=== PATIENT | male | born 1950 | race Caucasian/White ===

== ENCOUNTER → 2018-11-21 09:19 | Outpatient (CLI) | payer MEDICARE, SELFPAY ==
[2018-11-21 10:05] LABS: Add Manual Diff / Slide Review NO; Basophils Absolute Auto 100 /uL (0-100); Basophils Percent Auto 1.1 % (0-2); Eosinophils Absolute Auto 200 /uL (0-450); Eosinophils Percent Auto 3.4 % (2-4); Hematocrit 42.9 % (41-53); Hemoglobin 14.6 g/dL (13.5-17.5); Lymphocytes Absolute Auto 1500 /uL (1100-4500); Lymphocytes Percent Auto 30.5 % (25-40); Mean Corpuscular HGB Conc 34.2 % (30-36); Mean Corpuscular Hemoglobin 31.2 PG (26-34); Mean Corpuscular Volume 91.4 fL (80-100); Monocytes Absolute Auto 600 /uL (0-900); Monocytes Percent Auto 12.2 % (3-14); Neutrophils Absolute Auto 2600 /uL (1500-7000); Neutrophils Percent Auto 52.8 % (50-75); Platelet Count 280 X10^3/uL (150-400); Red Blood Cell Count 4.69 X10^6/uL (4.5-5.9); Red Cell Distribution Width 13.4 % (11.6-14.8); White Blood Cell Count 4.9 X10^3/uL (4.5-11.0)
[2018-11-21 10:20] LABS: Alanine Aminotransferase 19 IU/L (21-72); Albumin 4.2 g/dL (3.5-5.0); Albumin Globulin Ratio 1.6 (1.0-2.8); Alkaline Phosphatase 64 U/L (38-126); Aspartate Aminotransferase 22 IU/L (17-59); BUN Creatinine Ratio 23.8 (6-22); Bilirubin Total 0.8 mg/dL (0.2-1.3); Blood Urea Nitrogen 19 mg/dL (9-20); Calcium 9.3 mg/dL (8.4-10.2); Carbon Dioxide 25 mmol/L (22-32); Chloride 106 mmol/L (98-107); Cholesterol 200 mg/dL (140-199); Estimated Glomerular Filt Rate > 60.0 mL/min (>60); Globulin 2.7 g/dL (1.7-4.1); Glucose 92 mg/dL (80-110); HDL Cholesterol 55 mg/dL (40-60); HEMOLYSIS < 15 (0-50); LDL Cholesterol Calculated 128 mg/dL (<100); Potassium 4.2 mmol/L (3.4-5.1); Sodium 141 mmol/L (137-145); Total Protein 6.9 g/dL (6.3-8.2); Triglycerides 83 mg/dL (35-150)
[2018-11-21 10:51] LABS: Prostate Specific Antigen Scrn 0.855 ng/mL (0.1-4.0); TSH w/ Reflex to FT4 1.69 uIU/mL (0.47-4.68)
== END ==
PROVIDERS: Visit Provider Internal Medicine
DX: Z12.5 Encounter for screening for malignant neoplasm of prostate (principal); Z85.820 Personal history of malignant melanoma of skin; E78.00 Pure hypercholesterolemia, unspecified; G25.2 Other specified forms of tremor; Z12.11 Encounter for screening for malignant neoplasm of colon
CPT/HCPCS: 36415; 80053; 80061; 84443; 85025; G0103

== ENCOUNTER → 2020-03-25 11:00 | Outpatient (CLI) | payer MEDICARE, SELFPAY ==
[2020-03-25 13:23] LABS: Add Manual Diff / Slide Review NO; Basophils Absolute Auto 0 /uL (0-100); Eosinophils Absolute Auto 200 /uL (0-450); Eosinophils Percent Auto 4.1 % (2-4); Hematocrit 43.6 % (41-53); Lymphocytes Absolute Auto 1500 /uL (1100-4500); Lymphocytes Percent Auto 32.2 % (25-40); Mean Corpuscular HGB Conc 34.3 % (30-36); Mean Corpuscular Hemoglobin 31.9 PG (26-34); Mean Corpuscular Volume 92.9 fL (80-100); Monocytes Absolute Auto 500 /uL (0-900); Monocytes Percent Auto 11.2 % (3-14); Neutrophils Absolute Auto 2400 /uL (1500-7000); Neutrophils Percent Auto 51.5 % (50-75); Platelet Count 278 X10^3/uL (150-400); Red Blood Cell Count 4.69 X10^6/uL (4.5-5.9); Red Cell Distribution Width 13.5 % (11.6-14.8); White Blood Cell Count 4.7 X10^3/uL (4.5-11.0)
[2020-03-25 13:44] LABS: Hemoglobin A1C% w Est Avg Glu 5.5 % (4.0-6.0)
[2020-03-25 13:53] LABS: Blood Urea Nitrogen 17 mg/dL (9-20); Calcium 9.1 mg/dL (8.4-10.2); Carbon Dioxide 26 mmol/L (22-32); Chloride 105 mmol/L (98-107); Estimated Glomerular Filt Rate > 60.0 mL/min (>60); Glucose 108 mg/dL (80-110); HEMOLYSIS < 15 (0-50); Potassium 4.3 mmol/L (3.4-5.1); Sodium 138 mmol/L (137-145)
== END ==
PROVIDERS: PCP Internal Medicine; Referring Provider Internal Medicine; Visit Provider Orthopaedic Surgery Adult Reconstructive Orthopaedic Surgery
DX: Z01.818 Encounter for other preprocedural examination (principal); Z01.812 Encounter for preprocedural laboratory examination; R73.9 Hyperglycemia, unspecified
CPT/HCPCS: 36415; 80048; 83036; 85025; 93005; 93010

== ENCOUNTER → 2020-04-25 09:59 | Outpatient (CLI) | payer MEDICARE, SELFPAY ==
[2020-04-26 23:22] LABS: COVID19 Sendout Not Detected (Not Detect)
== END ==
PROVIDERS: PCP Internal Medicine; Visit Provider Physician Assistant
DX: Z01.812 Encounter for preprocedural laboratory examination (principal)
CPT/HCPCS: 87635

== ENCOUNTER 2020-04-29 15:43 | Observation (INO) | payer MEDICARE, SELFPAY ==
[2020-04-21 09:59] VITALS: BMI 26.9
[2020-04-28] VITALS (12 sets, daily range): BP systolic 99–149; BP diastolic 51–79; PULSE 54–71; RESP 11–19; TEMP 36.4–37.4; O2SAT 94–100; BMI 27.4
--- NOTE | 2020-04-28 | DI.RAD.S_ITS ---
PROCEDURE: XR PELVIS 1-2V INDICATIONS: RIGHT TOTAL HIP TECHNIQUE: 1 view of the lower pelvis acquired. COMPARISON: None. FINDINGS: Bones: Patient is status post right hip arthroplasty, with hardware components in expected positions. The hip joint appears congruent. The visualized bony structures appear intact. Soft tissues: Overlying postoperative changes are noted. No suspicious soft tissue densities. IMPRESSION: Normal postoperative alignment after right total hip arthroplasty. Dictated by: Martínez Presley M.D. on 04/28/2020 at 10:40 Approved by: Martínez Presley M.D. on 04/28/2020 at 10:41
--- NOTE | 2020-04-28 | DI.RAD.S_ITS ---
PROCEDURE: XR HIP RT 1V INDICATIONS: RIGHT TOTAL HIP TECHNIQUE: 2 view(s) of the hip acquired. COMPARISON: None. FINDINGS: Bones: Patient is status post right hip arthroplasty, with hardware components in expected positions. The hip joint appears congruent. The visualized bony structures appear intact. Soft tissues: Overlying postoperative changes are noted. No suspicious soft tissue densities. IMPRESSION: Right total hip arthroplasty, normal alignment on post-arthroplasty frontal view. Dictated by: Martínez Presley M.D. on 04/28/2020 at 10:37 Approved by: Martínez Presley M.D. on 04/28/2020 at 10:39
[2020-04-28] MEDS: LACTATED RINGERS 1,000 ML 42 ML IV ×2 (07:05→09:03)
[2020-04-28] MEDS: ACETAMINOPHEN 325 MG TABLET 975 MG PO (07:22)
[2020-04-28] MEDS: CELECOXIB 200 MG CAPSULE 400 MG PO (07:22)
--- NOTE | 2020-04-28 07:41 | PM.PREOP ---
Pre-operative Note COVID-19 COVID-19 status: Negative Result date/Date tested (Pos, Neg/Pending): 04/25/20 Interval Note History & Physical reviewed/Exam performed by Physician: Yes Changes to H&P: No H&P completed within 30 days and has changed as indicated here:: Plan for right anterior DUNIA.
[2020-04-28] MEDS: CLINDAMYCIN 600 MG/50 ML PIGGYBACK 50 MG IV (07:42)
--- NOTE | 2020-04-28 08:22 | SUR.OPER ---
Supine on padded [place] table with bilateral legs secured in padded positioning boots and suspended in positioning spars, operative leg in traction per surgeon. Head on one pillow. Arm on non-operative side secured on padded armboard <90 degrees abduction. Arm on operative side padded and resting across chest then secured with tape over sheet. Padded perineal post in place per surgeon.
[2020-04-28] MEDS: TRANEXAMIC ACID 1,000 MG VIAL 1000 MG IV ×2 (08:28→09:27)
[2020-04-28] MEDS: ROPIVACAINE 0.5% PF 20ML 60 ML, MORPHINE 4 MG, KETOROLAC 30 MG INJ (08:33)
--- NOTE | 2020-04-28 09:46 | P.OP_ITS ---
Operative Date/Time/Diagnoses Date of procedure: 04/28/20 Time of procedure: 09:46 Pre-op diagnosis: right hip OA Post-op diagnosis: same Procedure & Clinicians Procedure: right anterior total hip arthroplasty Same procedure as scheduled: Yes Indications: right hip OA resistant to further conservative management Surgeon: Yao Ricks Steel Welder: Leeann Paredes Anesthesia Type: Spinal and Sedation Operative Notes Findings: Right hip osteoarthritis with multiple intra-articular loose bodies. Closure Type: primary Specimen(s): none sent Prosthetic devices, grafts, tissues, transplants, or devices: Agu[employer] Nephew R3 cup 56 mm 2x 25mm screwsa 56 x 36 mm neutral liner Anthology size 8 stem (std) Biolox 36 + 0 head Estimated Blood Loss (mL): 200 Procedure in detail: Patient was met in the preoperative holding area where the site and side of surgery were marked by . All last minute questions were answered. Informed consent had been reviewed in clinic was reviewed again in the preoperative holding area. Patient was then brought back in the operating room where he received a spinal anesthetic. He was then transferred onto the [place] table. Bilateral feet were well padded in placed in [place] table traction boots. The right hip was then prepped and draped in normal sterile fashion. A surgical time-out was performed verifying the site and side of surgery as well as the name of the patient. A 5 cm long incision starting approximately 2 cm distal and 1 cm lateral to the ASIS was made in the skin using #10 Blade. This incision was aimed towards the fibular head. Electrocautery was used to dissect down to the level of the tensor fascia. A new #10 blade was then used to incise the tensor fascia. A Allis clamp was placed on the medial leaflet and the tensor muscle itself was reflected laterally. A Meyerding was then placed over the lateral edge of the rectus femoris and retracted medially this gave us good exposure to the ascending branches of the circumflex femoral vessels which were then coagulated for hemostasis. A Cobra retractor was then placed over the superior aspect of the femoral neck pericapsular fat was then removed and a 2nd cobra was then placed under the inferior portion of the femoral neck. An inverted T-shaped capsulotomy was then made using electrocautery and the superior and inferior leaflets were then tagged with a FiberWire suture. The Cobra was then placed intracapsularly. Based off for preop template a femoral neck cut was then made using reciprocating saw. The femur was then externally rotated 45? and a corkscrew was then placed into the femoral head and the head was removed. At this point and elects the soft tissue protector were sleeve was then placed into the wound. A pair a bent Hohmann was then placed over the anterior wall of the acetabulum and a 2nd was placed over the posterior wall acetabulum gluteus good acetabular exposure. Remnant of the labrum was then removed as well as the pulvinar. Began reaming with a 46 mm Reamer upsizing by 2s until we got to 50 mm Reamer. This point x-ray was brought in and matched our preoperative templated standing film. The last several reamers were reamed under fluoroscopic guidance. The 54 mm Reamer started to have good resistance with reaming. We then selected a 55 mm Reamer which had good resistance as well and a 56 mm 3 hole R3 cup was then selected. This was malleted into place under fluoroscopic guidance and 2 screws were then placed through the cup. A 56 mm x 36 mm neutral liner was then selected and placed. Ensuring that all tabs were flush with the acetabular rim. We then turned our attention to the femoral side the femoral elevator hook was placed under the posterior aspect of femur and a 45 degree Hohmann retractors placed over the superior aspect of the superior leaflet of the capsulotomy and the capsular leaflet was released from the inside shoulder of the greater trochanter giving us exposure to the short external rotators. A small release of the short external rotators was performed over the lateral border this allowed them to partially peel but remain attached. A single large prong retractor was then placed over the greater trochanter and a 2 prong Bernstein retractors placed over the medial calcar giving us good femoral exposure. A canal finer was used followed by a chili pepper broach followed by size 1 broach up to a size 8. We then calcar planed off the size 8 broach. A standard trial neck was selected with 36+ 0 head this was then reduced and brought through range of motion including maximal external rotation and found to be stable. It was then brought to 90? of external rotation extended to the floor and back up without any dislocations. Fluoroscopy was brought in for leg length verification as well as for stem placement. On fluoroscopic view appears we are a couple mm long on the operative side in addition there is a slight amount of varus in the stem. The hip was then dislocated the trial components were removed I down sized to size 6 broach making sure to lateralize taken out of varus. I then did the same with a size 7 broach and finally a size 8 which was several mm countersunk to her previous calcar cut. I then calcar reamed again down to the new level. The trial components were removed and a size 8 standard anthology stem was selected impacted into place. A 36+ 0 delta by locks head was then impacted onto the trunnion and hip was reduced a final time. Fluoroscopy was brought in for final films. The local injection was infiltrated into superior and inferior leaflets of the capsule as well as the tensor muscle. The wound was then irrigated with dilute Betadine solution was allowed to sit for several minutes prior to being washed away with copious normal saline. The capsule was then repaired with a running Ethibond suture and the FiberWire tag sutures were removed. The tensor fascia layer was then closed with a 1. Vicryl in a running locking fashion. Two Vicryl was then used in subcutaneous layer fo llowed by a running strata fix and Dermabond skin glue. An Aquacel dressing was then placed. Complications: none Post-operative Condition: stable Disposition: PACU Plan for aftercare: 24 hours of postop antibiotics, weight-bearing as tolerated right lower extremity, aspirin 81 mg b.i.d. for 6 weeks for DVT prophylaxis.
--- NOTE | 2020-04-28 10:13 | SUR.PHASEI ---
Report called to Joselo RN up on floor, will transfer soon, Dr Ricks here talking with pt now and hip x-ray done in pacu minutes ago
[2020-04-28] MEDS: diphenhydrAMINE 50 MG/ML VIAL 25 MG IV (10:22)
--- NOTE | 2020-04-28 10:34 | PC.NURSE ---
Day shift: Pt on unit from PACU at approx 1030. Rt hip dressing Aquacel is CDI. Pt A&Ox3. VS WNL. RA 97%. CMS ok. PPP. Report pain rt hip 07/20. Agrees to not get OOB w/o help from staff. Oriented to room and call light. Tolerating calf SCD's. Call light in reach.
[2020-04-28] MEDS: LACTATED RINGERS 1,000 ML 125 ML IV ×2 (11:04→20:21)
[2020-04-28] MEDS: CEFAZOLIN 2 GM/100 ML FROZ.PIGGY IV ×2 (11:43→18:43)
[2020-04-28] MEDS: diphenhydrAMINE 25 MG TABLET PO ×2 (11:56→17:45)
[2020-04-28] MEDS: ACETAMINOPHEN 325 MG TABLET 650 MG PO ×2 (13:57→20:16)
--- NOTE | 2020-04-28 14:00 | PT.IIE ---
Current Diagnoses Unilateral primary osteoarthritis, right hip (04/28/20) Surgery Performed Operation Date: 04/28/20 07:45 Actual Procedures p Total Hip Arthroplasty/Anterior Approach(Right) - Yao Ricks MD Surgical History (Last Updated 04/21/20 @ 10:12 by Indiana Smith RN) History of arthroplasty of right shoulder (Acute 2018) History of arthroscopy of right shoulder (Acute 1999) History of mandibular surgery (Acute 1989) History of vasectomy (Acute 1972) Hx of appendectomy (Acute 1970) Medical History (Last Updated 04/21/20 @ 10:12 by Indiana Smith RN) Melanoma (Acute) Osteoarthritis (Acute) Physical Therapy Inpatient Evaluation/Re-Eval M1 PT/OT-IP Prior Functional Status Start: 04/28/20 14:52 Freq: NEEDED Status: Active Protocol: Document 04/28/20 14:00 AB (Rec: 04/28/20 15:01 AB [id number]) Medical Review Prior Functional Status Medical History Reviewed Yes Communication able to make needs known Mobility and Gait pt stated that he is independent with all mobilities and ambulation without AD Social History Household Members spouse Living Arrangements House Number of Floors (Floors) One Floor Number of Stairs To Enter/Railing? no steps to enter Home Environment High Toilet,Walk in Shower, Built-In Shower Seat Home Equipment Front Wheel Walker Additional Social History Comment has hiking poles M2 PT-IP Current Condition Start: 04/28/20 14:52 Freq: NEEDED Status: Active Protocol: Document 04/28/20 14:00 AB (Rec: 04/28/20 15:01 AB [id number]) Physical Therapy Current Condition Current Condition Evaluation Date 04/28/20 Treatment Diagnosis s/p R DUNIA anterior approach; difficulty in walking Onset Date 04/28/20 Precautions Anterior Hip Precautions No Hip Extension,No Hip External Rotation Weight Bearing Status Weight Bearing Status Weight Bear as Tolerated Allowed Weight Bearing Amount (enter % RLE WBAT or #) (%) M3 PT-IP Subjective Start: 04/28/20 14:52 Freq: NEEDED Status: Active Protocol: Document 04/28/20 14:00 AB (Rec: 04/28/20 15:01 AB [id number]) Subjective Physical Therapy Visit Type Type Initial Evaluation Visit Start Time 14:00 Visit Stop Time 14:39 Total Visit Minutes 39 Number of JTAC Visits 0 Physical Therapy Visit Comments Patient Comments pt is agreeable to do PT Therapy Pain Assessment Pain Present Pain Present Denied Pain M4 PT-IP Mobility and Gait Start: 04/28/20 14:52 Freq: NEEDED Status: Active Protocol: Document 04/28/20 14:00 AB (Rec: 04/28/20 15:01 AB [id number]) PT-Bed Mobility Assessment Supine to Sit Supine to Sit Standby Assistance PT-Transfer Assessment Sit to and From Stand Sit to and from Stand Contact Guard Assistance,1 Person Assistance,Use of Upper Extremities Equipment Transfer Assistive Device Gait Belt,Front Wheeled Walker Orthotic/Prosthetic Devices or Brace: No Transfers Transfer Destination Toilet Transfer Technique ambulated using FWW Transfer Ability Level of Assist Contact Guard Assistance,1 Person Assistance,Use of Upper Extremities Comments Mobility Comments educated on anterior hip precautions and pt able to recall afterwards. BP supine: 119/72. completed supine to sit SBA. pt no complaints of dizziness/lightheadedness. completed sit to stand CGA and ambulated in room ~ 30 ft. requested to use the toilet and ambulated towards the toilet using FWW CGA. pt was able to maintain standing using FWW SBA while using the toilet. ambulated out of the toilet using FWW CGA. Agreed to sit up on chair. positioned on chair. ice pack provided. call light and table placed within reach. Gait Assessment Gait Gait Assistance Required: Contact Guard Assist Distance (Feet) 30 Able to Maintain Weight Bearing Status Yes During Gait Assistive Devices Assistive Device Gait Belt,Front Wheeled Walker Orthotic/Prosthetic Devices or Brace: No Gait Deviations General Gait Pattern Antalgic Factors Limiting Gait Function Factors Limiting Gait Function Decreased Activity Tolerance, Decreased Strength,Poor Balance PT-Balance Assessment Sitting Balance and Reactions Static Sitting Balance Ability Good Dynamic Sitting Balance Ability Good Standing Balance and Reactions Static Standing Balance Ability Fair Dynamic Standing Balance Ability Fair Device Used FWW M5 PT-IP Objective Assessments Start: 04/28/20 14:52 Freq: NEEDED Status: Active Protocol: Document 04/28/20 14:00 AB (Rec: 04/28/20 15:01 AB [id number]) Orientation Orientation/Cognition Level of Alertness Alert Orientation Name,Age,Birthday,Month,Date, Year,Day of Week,Place, Situation Language Function Ability No Deficits Noted Safety Awareness Understands Safety Issues Memory Description No Deficits Noted Gross Range of Motion Lower Extremity ROM Assessment Within Functional Limits Strength Lower Extremity Strength Assessment Right Impaired Hip 3+/5 Knee 4-/5 Coordination Assessment Gross Coordination Gross Coordination WNL Sensation Assessment Sensation Gross Sensation WNL Muscle Tone Muscle Tone WNL Yes M6 PT-IP Treatment Start: 04/28/20 14:52 Freq: NEEDED Status: Active Protocol: Document 04/28/20 14:00 AB (Rec: 04/28/20 15:01 [id number]) Physical Therapy Treatment Education Education Provided Precautions,Weight Bearing Status,Post-Op Packet,Safety M7 PT-IP Assessment and Plan Start: 04/28/20 14:52 Freq: NEEDED Status: Active Protocol: Document 04/28/20 14:00 AB (Rec: 04/28/20 15:01 AB [id number]) PT Summary Assessment and Plan Potential Rehabilitation Potential Good Status of Condition at Evaluation Stable Summary Impairments ROM,Strength,Balance,Bed Mobility,Transfers,Gait, Activity Tolerance Assessment Summary pt s/p R DUNIA and just had surgery this morning. pt without c/o pain at this time and is requiring CGA with mobility using FWW. pt plans to go home with spouse to assist him and has outpt PT set up. Goals Bed Mobility Goal Independent Transfer Goal Independent,Front Wheeled Walker Gait Goal Independent,Front Wheel Walker Gait Distance 200 Days to Meet Goals 5 Frequency of Treatment Frequency Of Treatment Twice a Day Treatment Plan Physical Therapy Treatment Plan Bed Mobility Training,Transfer Training,Gait Training, Therapeutic Exercise,Balance Retraining,Post Op Education, Discharge Planning,Hot or Cold Pack,Neuromuscular Re-ed, Coordination Retraining Recommendations To Nursing Amount of Assist Needed 1 Person Assist Discharge Recommendations PT Discharge Recommendations Home with Assistance, Outpatient PT Transportation Needs at Discharge Private Vehicle
[2020-04-28] MEDS: ASPIRIN EC 81 MG TABLET PO (20:16)
[2020-04-28] MEDS: DOCUSATE 100 MG CAPSULE PO (20:16)
[2020-04-28] MEDS: OXYCODONE IR 5 MG TABLET PO ×2 (20:20→23:43)
[2020-04-29] MEDS: diphenhydrAMINE 25 MG TABLET PO ×3 (00:09→11:42)
--- NOTE | 2020-04-29 00:45 | PC.NURSE ---
Addendum entered by Liyah Morales R.N. 04/29/20 06:09: 0545 Patient still unable to urinate so in/out cath done with 850cc dark yellow urine returned. Tolerated well. Addendum entered by Liyah Morales R.N. 04/29/20 04:45: Patient up and voided 50cc urine. Bladder scan showing 765cc but patient denies feeling uncomfortable and requests to wait another hour to see if he can urinate without being cathed again. States pain is currently 5/10 so medicated with Oxycodone. Original Note: 0067 Patient seen and assessed. Is alert and oriented. Breath sounds CTA with RA sat of 96%. HRR. Denies nausea. BT hypoactive and denies flatus; abdomen is soft and non tender. Was unable to void on own following surgery so was in/out cathed on previous shift; will continue to monitor. Is able to turn himself in bed. Not up at this time so gait not assessed but reportedly is using walker with SBA. Aquacel dressing to right hip is CDI. Does complain of 5/10 pain so was medicated with Oxycodone and ice applied. CMS intact bilaterally. Wearing bilateral calf SCD's. Fall risk score is moderate and bed alarm is activated. 0009 patient complains of itchiness on back so medicated with Benadryl and lotion applied to back.
[2020-04-29 04:30] VITALS: BP 119/63; PULSE 61; RESP 16; TEMP 36.7; O2SAT 96
[2020-04-29] MEDS: OXYCODONE IR 5 MG TABLET PO ×5 (04:42→17:19)
--- NOTE | 2020-04-29 07:47 | PM.PNPO.1 ---
Subjective Subjective Date Patient Seen: 04/29/20 Time Patient Seen: 07:47 Interval history: Pain mild. Denies fever chills. No nausea vomiting. Patient's is home to assist him. Otherwise without complaints this morning. Exam Vital Signs (past 8 hours): - 04/28/20 23:53 04/29/20 04:30 Temperature 99.1 F 98.0 F Pulse Rate 69 61 Respiratory Rate 16 16 Blood Pressure 111/51 L 119/63 Pulse Oximetry 96 96 Oxygen Delivery Method Room Air Oxygen Flow Rate 0 Narrative Exam Narrative: Right hip dressing is clean, dry and intact. Right leg is warm and dry. SCDs on and functioning. Motor functions intact distal bilateral lower extremities. Sensation grossly intact to light touch bilateral lower extremities. Assessment & Plan Post-op Postoperative Procedures: Procedures Operation Date: 04/28/20 07:45 Actual Procedures Side Surgeon p Total Hip Arthroplasty/Anterior Approach Right Yao Ricks MD Patient progressing as expected status post right total hip arthroplasty. Straight cath x2 yesterday evening. Mobilize with physical therapy. May need Flomax. Likely discharge home later today.
[2020-04-29] MEDS: DOCUSATE 100 MG CAPSULE PO (07:59)
[2020-04-29] MEDS: ASPIRIN EC 81 MG TABLET PO (07:59)
[2020-04-29] MEDS: ACETAMINOPHEN 325 MG TABLET 650 MG PO ×2 (07:59→14:12)
[2020-04-29] MEDS: SODIUM CHLORIDE 0.9% FLUSH 10 ML IV (08:00)
--- NOTE | 2020-04-29 08:14 | PC.NURSE ---
Day shift: Pt encouraged to use I.S. this AM as directed. Pt also does not want the SCD's this AM. Explained SCD's and encouraged Pt to perform food waves. Call light in reach.
[2020-04-29 08:24] VITALS: BP 104/65; PULSE 65; RESP 15; TEMP 37.2; O2SAT 97
[2020-04-29 08:29] LABS: Hematocrit 37.3 % (41-53); Hemoglobin 12.8 g/dL (13.5-17.5)
[2020-04-29] MEDS: INFLUENZA HD VACCINE 0.7 ML SYRINGE IM (09:36)
--- NOTE | 2020-04-29 10:09 | PT.IPTN ---
Current Diagnoses Unilateral primary osteoarthritis, right hip (04/28/20) Surgery Performed Operation Date: 04/28/20 07:45 Actual Procedures p Total Hip Arthroplasty/Anterior Approach(Right) - Yao Ricks MD Physical Therapy Treatment Note M2 PT-IP Current Condition Start: 04/28/20 14:52 Freq: NEEDED Status: Active Protocol: Document 04/29/20 10:09 MA (Rec: 04/29/20 12:02 MA [email or web address]) Physical Therapy Current Condition Current Condition Evaluation Date 04/28/20 Treatment Diagnosis s/p R DUNIA anterior approach; difficulty in walking Onset Date 04/28/20 Precautions Anterior Hip Precautions No Hip Extension,No Hip External Rotation Weight Bearing Status Weight Bearing Status Weight Bear as Tolerated Allowed Weight Bearing Amount (enter % RLE WBAT or #) (%) M3 PT-IP Subjective Start: 04/28/20 14:52 Freq: NEEDED Status: Active Protocol: Document 04/29/20 10:09 MA (Rec: 04/29/20 12:02 MA [email or web address]) Subjective Physical Therapy Visit Type Type Treatment Note Visit Start Time 09:46 Visit Stop Time 10:09 Total Visit Minutes 23 Number of ONION FARMER Visits 1 Physical Therapy Visit Comments Patient Comments Pt agreeable to PT, would not give pain level stating all pain is subjective, but let's just say it's not bad enough for another pain pill yet. Pt found in chair, all needs within reach Therapy Pain Assessment Pain Present Pain Present Pain Reported Location right hip Description Aching,With Movement M4 PT-IP Mobility and Gait Start: 04/28/20 14:52 Freq: NEEDED Status: Active Protocol: Document 04/29/20 10:09 MA (Rec: 04/29/20 12:02 MA [email or web address]) PT-Transfer Assessment Sit to and From Stand Sit to and from Stand Contact Guard Assistance,1 Person Assistance,Use of Upper Extremities Equipment Transfer Assistive Device Gait Belt,Front Wheeled Walker Orthotic/Prosthetic Devices or Brace: No Transfers Transfer Destination Chair Transfer Technique ambulated using FWW Transfer Ability Level of Assist Contact Guard Assistance,1 Person Assistance,Use of Upper Extremities Comments Mobility Comments Re-educated on hip precautions with pt able to recall afterwards. Pt CGA, FWW for Sit<>Stand from chair. Gait Assessment Gait Gait Assistance Required: Contact Guard Assist Distance (Feet) 212 Able to Maintain Weight Bearing Status Yes During Gait Assistive Devices Assistive Device Gait Belt,Front Wheeled Walker Orthotic/Prosthetic Devices or Brace: No Gait Deviations General Gait Pattern Antalgic Factors Limiting Gait Function Factors Limiting Gait Function Decreased Activity Tolerance, Decreased Strength,Poor Balance Comments Gait Comments Pt with increased stance time R, decreased rob, and seeming groggy from pain medication. Said pain was tolerable while walking and requested to walk further this afternoon. PT-Balance Assessment Sitting Balance and Reactions Static Sitting Balance Ability Good Dynamic Sitting Balance Ability Good Standing Balance and Reactions Static Standing Balance Ability Good Dynamic Standing Balance Ability Good Device Used FWW M5 PT-IP Objective Assessments Start: 04/28/20 14:52 Freq: NEEDED Status: Active Protocol: Document 04/28/20 14:00 AB (Rec: 04/28/20 15:01 AB [id number]) Orientation Orientation/Cognition Level of Alertness Alert Orientation Name,Age,Birthday,Month,Date, Year,Day of Week,Place, Situation Language Function Ability No Deficits Noted Safety Awareness Understands Safety Issues Memory Description No Deficits Noted Gross Range of Motion Lower Extremity ROM Assessment Within Functional Limits Strength Lower Extremity Strength Assessment Right Impaired Hip 3+/5 Knee 4-/5 Coordination Assessment Gross Coordination Gross Coordination WNL Sensation Assessment Sensation Gross Sensation WNL Muscle Tone Muscle Tone WNL Yes M6 PT-IP Treatment Start: 04/28/20 14:52 Freq: NEEDED Status: Active Protocol: Document 04/29/20 10:09 MA (Rec: 04/29/20 12:02 MA [email or web address]) Physical Therapy Treatment Education Education Provided Precautions,Weight Bearing Status,Safety M7 PT-IP Assessment and Plan Start: 04/28/20 14:52 Freq: NEEDED Status: Active Protocol: Document 04/29/20 10:09 MA (Rec: 04/29/20 12:02 MA [email or web address]) PT Summary Assessment and Plan Potential Rehabilitation Potential Good Status of Condition at Evaluation Stable Summary Impairments ROM,Strength,Balance,Bed Mobility,Transfers,Gait, Activity Tolerance Assessment Summary Pt not able to tell ONION FARMER anterior hip precautions upon arrival but able to repeat them at end of session. Pt stating pain was tolerable throughout session. Pt had increased stance time RLE and decreased rob while ambulating but able to ambulate further today ~212 ft . Goals Bed Mobility Goal Independent Transfer Goal Independent,Front Wheeled Walker Gait Goal Independent,Front Wheel Walker Gait Distance 200 Days to Meet Goals 5 Frequency of Treatment Frequency Of Treatment Twice a Day Treatment Plan Physical Therapy Treatment Plan Bed Mobility Training,Transfer Training,Gait Training, Therapeutic Exercise,Balance Retraining,Post Op Education, Discharge Planning,Hot or Cold Pack,Neuromuscular Re-ed, Coordination Retraining Recommendations To Nursing Amount of Assist Needed 1 Person Assist Discharge Recommendations PT Discharge Recommendations Home with Assistance, Outpatient PT Transportation Needs at Discharge Private Vehicle
--- NOTE | 2020-04-29 10:47 | CM.DANOTE ---
DCP: Case received, EMR reviewed and met with patient. Introduced self and role. Was able to obtain information from patient regarding his baseline activity status prior to surgery, and living situation. DCP assessment completed with information currently available. Patient is a 70 year old male who admitted yesterday morning to the care of the orthopedic team. PCP: Dr. Thompson. Payer: confirmed: Medicare/[employer]. Patient came to the hospital via private vehicle for a surgical procedure. He had a right anterior total hip arthroplasty. Patient has had history of osteoarthritis of his right hip. Met with patient in his room. He is alert and oriented, he was sitting up in his chair with walker near by. Patient indicated that he is independent at baseline, and has not used any DME supplies in the past. He resides with his spouse, Jill, here in [place]. Confirmed with patient that she will be assisting him as needed when he goes home. P: DCP to continue to follow. Patient should be able to go home when medically stable and cleared by P.T. Amalia Augusitne RN/Registry Rn
[2020-04-29 12:00] VITALS: BP 120/80; PULSE 62; RESP 15; TEMP 37.3; O2SAT 99
--- NOTE | 2020-04-29 14:08 | PT.IPTN ---
Current Diagnoses Unilateral primary osteoarthritis, right hip (04/28/20) Surgery Performed Operation Date: 04/28/20 07:45 Actual Procedures p Total Hip Arthroplasty/Anterior Approach(Right) - Yao Ricks MD Physical Therapy Treatment Note M2 PT-IP Current Condition Start: 04/28/20 14:52 Freq: NEEDED Status: Active Protocol: Document 04/29/20 10:09 MA (Rec: 04/29/20 12:02 MA [email or web address]) Physical Therapy Current Condition Current Condition Evaluation Date 04/28/20 Treatment Diagnosis s/p R DUNIA anterior approach; difficulty in walking Onset Date 04/28/20 Precautions Anterior Hip Precautions No Hip Extension,No Hip External Rotation Weight Bearing Status Weight Bearing Status Weight Bear as Tolerated Allowed Weight Bearing Amount (enter % RLE WBAT or #) (%) M3 PT-IP Subjective Start: 04/28/20 14:52 Freq: NEEDED Status: Active Protocol: Document 04/29/20 14:08 MA (Rec: 04/29/20 14:43 MA [email or web address]) Subjective Physical Therapy Visit Type Type Treatment Note Visit Start Time 13:43 Visit Stop Time 14:08 Total Visit Minutes 25 Number of TECHNICAL SUPPORT MANAGER Visits 2 Physical Therapy Visit Comments Patient Comments Pt agreeable to PT, all needs within reach. Nurse in room finishing up bladder scan. Therapy Pain Assessment Pain Present Pain Present Pain Reported Location right hip Description Aching,With Movement M4 PT-IP Mobility and Gait Start: 04/28/20 14:52 Freq: NEEDED Status: Active Protocol: Document 04/29/20 14:08 MA (Rec: 04/29/20 14:43 MA [email or web address]) PT-Bed Mobility Assessment Supine to Sit Supine to Sit Independent PT-Transfer Assessment Sit to and From Stand Sit to and from Stand Standby Assistance,Use of Upper Extremities Equipment Transfer Assistive Device Gait Belt,Front Wheeled Walker Orthotic/Prosthetic Devices or Brace: No Transfers Transfer Destination Bed Transfer Technique ambulated using FWW Transfer Ability Level of Assist Contact Guard Assistance,1 Person Assistance,Use of Upper Extremities Comments Mobility Comments Pt SBA for bed mobility and Sit<>stand transfers. Gait Assessment Gait Gait Assistance Required: Contact Guard Assist Distance (Feet) 1,200 Able to Maintain Weight Bearing Status Yes During Gait Assistive Devices Assistive Device Gait Belt,Front Wheeled Walker Orthotic/Prosthetic Devices or Brace: No Gait Deviations General Gait Pattern Antalgic Factors Limiting Gait Function Factors Limiting Gait Function Decreased Activity Tolerance, Decreased Strength,Poor Balance Comments Gait Comments Pt with increased stance time R and decreased rob. Said pain was tolerable and was able to walk for twenty minutes straight PT-Balance Assessment Sitting Balance and Reactions Static Sitting Balance Ability Normal Dynamic Sitting Balance Ability Good Standing Balance and Reactions Static Standing Balance Ability Good Dynamic Standing Balance Ability Good Device Used FWW M5 PT-IP Objective Assessments Start: 04/28/20 14:52 Freq: NEEDED Status: Active Protocol: Document 04/28/20 14:00 AB (Rec: 04/28/20 15:01 AB [id number]) Orientation Orientation/Cognition Level of Alertness Alert Orientation Name,Age,Birthday,Month,Date, Year,Day of Week,Place, Situation Language Function Ability No Deficits Noted Safety Awareness Understands Safety Issues Memory Description No Deficits Noted Gross Range of Motion Lower Extremity ROM Assessment Within Functional Limits Strength Lower Extremity Strength Assessment Right Impaired Hip 3+/5 Knee 4-/5 Coordination Assessment Gross Coordination Gross Coordination WNL Sensation Assessment Sensation Gross Sensation WNL Muscle Tone Muscle Tone WNL Yes M6 PT-IP Treatment Start: 04/28/20 14:52 Freq: NEEDED Status: Active Protocol: Document 04/29/20 14:43 MA (Rec: 04/29/20 14:43 MA [email or web address]) Physical Therapy Treatment Education Education Provided Precautions,Weight Bearing Status,Post-Op Packet,Safety M7 PT-IP Assessment and Plan Start: 04/28/20 14:52 Freq: NEEDED Status: Active Protocol: Document 04/29/20 14:08 MA (Rec: 04/29/20 14:43 MA [email or web address]) PT Summary Assessment and Plan Potential Rehabilitation Potential Good Status of Condition at Evaluation Stable Summary Impairments ROM,Strength,Balance,Bed Mobility,Transfers,Gait, Activity Tolerance Assessment Summary Pt able to repeat anterior hip precautions without any help from TECHNICAL SUPPORT MANAGER and was able to ambulate for close to twenty minutes with no breaks. Goals Bed Mobility Goal Independent Transfer Goal Independent,Front Wheeled Walker Gait Goal Independent,Front Wheel Walker Gait Distance 200 Days to Meet Goals 5 Frequency of Treatment Frequency Of Treatment Twice a Day Treatment Plan Physical Therapy Treatment Plan Bed Mobility Training,Transfer Training,Gait Training, Therapeutic Exercise,Balance Retraining,Post Op Education, Discharge Planning,Hot or Cold Pack,Neuromuscular Re-ed, Coordination Retraining Recommendations To Nursing Amount of Assist Needed 1 Person Assist Discharge Recommendations PT Discharge Recommendations Home with Assistance, Outpatient PT Transportation Needs at Discharge Private Vehicle
--- NOTE | 2020-04-29 15:13 | PC.NURSE ---
Day shift: Pt did not want any help from staff when getting OOB to the bathroom. Pt informed that it was for his safety but he still wants to move independently in the room.
[2020-04-29 15:30] VITALS: BP 117/68; PULSE 70; RESP 18; TEMP 37.2; O2SAT 97
--- NOTE | 2020-04-29 16:30 | PC.NURSE ---
Addendum entered by Whitney Enriquez R.N. 04/29/20 17:56: Shelton Womack PA asked me about patient progress, urinary function; then wrote DC orders, prescription for oxycodone. I told him that patient was very upset & agitated about wasting all this time here. Immediately after PA went in room to see patient I received a call from Dr Hodges, who said that Immanuel's Jill called the answering service to have him paged. I notified Dr Hodges that Shelton Womack was in the patient's room & that the DC orders had been written. I then printed out all paperwork, hearing patient at main nurses' station I took DC paperwork there, where Shelton Womack, patient & float RN Kristal were talking. Patient observably agitated, I asked if he would like to go to his room to go over the paperwork. He nodded, walking to room. I noticed both when taking out patient's IV previously, and while walking with him that patient has moderate tremor to gregory UE's, somewhat shaky and swaying while standing, refusing to use walker. He called his on dorothy phone to ask her to pick him up. He repeatedly said we had wasted his time. When I was in room to take out IV & give him pain pill, I overheard him talking with on phone saying I guess I will start letter writing and this hospital and I will let them know how I have been treated. Patient is observed to be agitated with this nurse, would not let this nurse read through his discharge paperwork or instructions. He said do you have to read that? and can't I read that at home? I told him that he should read all paperwork when he goes home. I instructed him to call [facility] in the AM to schedule his 2 week follow up appt. Throughout interaction with patient he had moderate tremor, his hands shaking. When signing paperwork asked what day is it. I told him it was April 29. He then grabbed his own walker with one hand and holding paperwork with other, started walking into hallway, refusing for me to assist him into wheelchair, refusing for CAPACITY PLANNING ANALYST to hold paperwork & help him. Olivia ALVAREZ walked with patient to ER entrance where he shoo-ed her away, refusing for her to stand by until his arrived, refusing to sit down to rest. Patient left standing outside hospital by curb. Olivia came back up to to report that patient refused for her to stand by. mitering machine operator notified of situation. About 10 minutes later pocket secretary assembler said that the admission audio visual equipment rental clerk downstairs at ER entrance called up to notify us that patient left safely in private car. Addendum entered by Whitney Enriquez R.N. 04/29/20 17:22: I notified [facility] of patient's request to be discharged from hospital, calling the 1st time (noted) above, and a 2nd time to notify [facility] that we did not have pain med prescription hard copy in chart. Patient notified that I called the Dr's office twice and also that I notified the discharge planner as well as the Nursing Leather Production Artisan Negin about this situation. At 1700 patient's Jill called me, inquiring what time would the doctor be here? Questioned nursing about having calling physician, calmly expressing she was upset that I could not tell her a specific time. I told her that I was told that the PA would be here after 5pm to see patient & discharge him. She expressed she was upset that we will have to wait for the prescription and he will have to sit in the car all that time, I told her that she could come now and take prescription (when written) to the pharmacy so that Immanuel could wait in his room. I told her that I could medicate Immanuel with pain meds before leaving hospital. She said well whatever you are doing, isn't working, can I go to the clinic or call them? I told her she could call [facility] but would be directed to the Dr personal counselor. Immanuel is now dressed, IV removed to left wrist. CARLOS Womack here to see patient. Original Note: Evening note: Luis reports no difficulty voiding. Said I'm just waiting to go home-I really don't want to stay here. VSS, low-grade temp 99.0. I notified Dr Ricks's pocket secretary assembler Priscilla that patient was requesting to be discharged home. She said that the plan was for Shelton GONZALEZ to see patient & write DC orders this evening after done at clinic. I notified patient of this plan.
--- NOTE | 2020-04-29 17:28 | P.DS_ITS ---
History of Present Illness History of Present Illness Date Patient Seen: 04/29/20 Time Patient Seen: 17:28 Chief complaint: R Total Hip Arthroplasty/Anterior Approach *OPB* Narrative: See progress note. Discharge Providers Provider Date of admission: 04/29/20 15:43 Discharge Date: 04/29/20 Primary care physician: Dianelys Thompson MD Consults: 04/28/20 10:29 Consult to Discharge Planning Routine Comment: Consult to Physical Therapy Evaluate & Treat Comment: Physician Instructions: post op DUNIA protocol Consult to Respiratory Therapy Evaluate & Treat Comment: Physician Instructions: Evaluate and treat Discharge provider: Shelton Womack PA-C Summary Hospital Course Discharge Diagnosis: right hip OA Hospital Course: Procedure: right anterior total hip arthroplasty Same procedure as scheduled: Yes Indications: right hip OA resistant to further conservative management Surgeon: Yao Ricks Time Signal Wirer: Leeann Paredes Anesthesia Type: Spinal and Sedation Operative Notes Findings: Right hip osteoarthritis with multiple intra-articular loose bodies. Closure Type: primary Specimen(s): none sent Prosthetic devices, grafts, tissues, transplants, or devices: Aguilar [employer] Nephew R3 cup 56 mm 2x 25mm screwsa 56 x 36 mm neutral liner Anthology size 8 stem (std) Biolox 36 + 0 head Estimated Blood Loss (mL): 200 Patient had difficulty urinating late last night and early this morning. Patient had straight cath x2. Patient started voiding on his own this morning and small volumes. Continue to improve throughout the day. Patient has urinated well with postvoid residuals being 0. Patient has no discomfort. Patient has assistance at home. Patient will be discharged home today in stable condition. Status at Discharge Cognitive/behavioral status at discharge: at baseline, oriented Functional status at discharge: uses cane/walker Overall status at discharge: patient is progressing back to baseline Time Spent with Patient Time spent: Less than 30 minutes Exam Vital Signs (past 8 hours): - 04/29/20 12:00 04/29/20 15:30 Temperature 99.2 F 99.0 F Pulse Rate 62 70 Respiratory Rate 15 18 Blood Pressure 120/80 117/68 Pulse Oximetry 99 97 Oxygen Delivery Method Room Air Oxygen Flow Rate 0 Narrative Exam Narrative: See progress note Objective Labs Result Diagrams: 04/29/20 07:58 Labs: Laboratory Results - last 24 hr 04/29/20 07:58 Hgb 12.8 L Hct 37.3 L Discharge Assessment & Plan Assessment and Plan Assessment: Patient progressing as expected. Postop day 1 status post right total hip arthroplasty, anterior approach. The patient mobilizing well with physical therapy. Beginning at some difficulty urinating last night and early this morning. Urinating on his own well with postvoid residual being 0. Discharge home today in stable condition. He is aware he should return if any difficulty voiding or urinary retention. Discharge Plan Discharge Plan Patient Disposition: Home Discharge orders & Medications Prescriptions: New acetaminophen 325 mg Tablet 650 mg PO TID Qty: 60 RF: 0 aspirin 81 mg Tablet,Delayed Release (Dr/Ec) 81 mg PO BID Qty: 60 RF: 0 docusate sodium [DOK] 100 mg Capsule 100 mg PO BID Qty: 20 RF: 0 oxycodone 5 mg Tablet 5 mg PO Q3HR PRN (Reason: Pain, Moderate (4-6)) Qty: 40 RF: 0 Discontinued naproxen sodium 220 mg Tablet 440 mg PO DAILY PRN (Reason: Pain) RF: 0 ibuprofen 200 mg Tablet 400 mg PO Q6H PRN (Reason: Pain) RF: 0 Follow up/Referrals: Yao Ricks MD [Physician] - (2 weeks) Dianelys Thompson MD [Primary Care Provider] - Diet/Activity/Treatments Activity: WBAT Cold/Heat Therapy: ice as needed Skin/Wound/Dressing Care Report to your healthcare provider any signs of infection, such as:: chills, fever, increased pain, unusual drainage and unusual redness Dressing: keep clean and dry Visit Report/Discharge Packet Instructions: DI for Hip Replacement, DI for Prescription Opioid Use Stand Alone Forms: Surgery Discharge Discharge Data Primary Care Provider: Dianelys Thompson Attending Provider: Yao Ricks Admit Date/Time: 04/29/20 15:43
--- NOTE | 2020-04-29 17:43 | PC.NURSE ---
This RN was walking in the hallway and stopped by Shelton Womack PA-C. This patient and Harjit was standing in the hallway and patient appeared very agitated. Harjit then asked the patient to tell this RN what he had said to Harjit. At first all patient said was he wasted his time for four hours. Then Harjit wanted the patient to tell this RN what name did you call me. Patient then turned to Harjit and stated I called him a prick. Per Harjit, patient had called him that many times. Patient then demanded to leave right now. This RN went to look for primary RN Priyanka Hahn who was getting his discharge packet ready and went to speak with him.
== END 2020-04-29 17:45 | disposition home or self-care (01) ==
LOC: OR 15:58 → AC 15:58
PROVIDERS: Admitting Provider Orthopaedic Surgery Adult Reconstructive Orthopaedic Surgery; PCP Internal Medicine; Referring Provider Internal Medicine; Visit Provider Orthopaedic Surgery Adult Reconstructive Orthopaedic Surgery
PROC: (CPT 27130; principal; 2020-04-28 07:45)
DX: M16.11 Unilateral primary osteoarthritis, right hip (principal); M24.051 Loose body in right hip
CPT/HCPCS: 27130; 36415; 72170; 73501; 76000; 85014; 85018; 90471; 90662; 94762; 97116; 97161; 97530; C1776; G0378; J0690; J1200; J1885; J2270; J2274; J2704; J2795

== ENCOUNTER → 2021-05-04 13:59 | Outpatient (CLI) | payer MEDICARE, SELFPAY ==
[2020-04-28 10:43] VITALS: BMI 27.4
--- NOTE | 2021-05-04 14:04 | DI.CT.S_ITS ---
PROCEDURE: CT UE LT WO CON INDICATIONS: Primary osteoarthritis, left shoulder TECHNIQUE: Noncontrast 1-1.5 mm thick sections acquired from the acromioclavicular joint to the inferior scapula, with coronal and sagittal reformatting. COMPARISON: June 24, 2017. FINDINGS: Image quality: Excellent. Bones: No acute, displaced fracture. Advanced glenohumeral joint space loss , prominent osteophytosis and multiple intra-articular bodies. A 1.7 x 1.1 cm sclerotic focus is seen in the humeral neck, which may reflect a bone infarct. Soft tissues: Calcifications within the rotator cuff interval, compatible with calcific tendinopathy. IMPRESSION: 1. No acute osseous abnormality of the shoulder. 2. Advanced degenerative changes of the glenohumeral articulation as detailed above. Dictated by: Carlos Vicente M.D. on 05/04/2021 at 15:31 Approved by: Carlos Vicente M.D. on 05/04/2021 at 15:37
== END ==
PROVIDERS: PCP Internal Medicine; Referring Provider Orthopaedic Surgery; Visit Provider Orthopaedic Surgery
DX: M19.012 Primary osteoarthritis, left shoulder (principal)
CPT/HCPCS: 73200

== ENCOUNTER → 2021-06-23 12:30 | Outpatient (CLI) | payer MEDICARE, SELFPAY ==
[2020-04-28 10:43] VITALS: BMI 27.4
[2021-06-23 13:43] LABS: Add Manual Diff / Slide Review NO; Basophils Absolute Auto 100 /uL (0-100); Eosinophils Absolute Auto 200 /uL (0-450); Eosinophils Percent Auto 3.3 % (2-4); Hematocrit 41.4 % (41-53); Hemoglobin 13.9 g/dL (13.5-17.5); Lymphocytes Absolute Auto 1500 /uL (1100-4500); Lymphocytes Percent Auto 25.9 % (25-40); Mean Corpuscular HGB Conc 33.6 % (30-36); Mean Corpuscular Hemoglobin 30.8 PG (26-34); Mean Corpuscular Volume 91.7 fL (80-100); Monocytes Absolute Auto 600 /uL (0-900); Monocytes Percent Auto 10.3 % (3-14); Neutrophils Absolute Auto 3500 /uL (1500-7000); Neutrophils Percent Auto 59.5 % (50-75); Platelet Count 276 X10^3/uL (150-400); Red Blood Cell Count 4.52 X10^6/uL (4.5-5.9); Red Cell Distribution Width 13.5 % (11.6-14.8); White Blood Cell Count 5.9 X10^3/uL (4.5-11.0)
[2021-06-23 13:53] LABS: Hemoglobin A1C% w Est Avg Glu 5.2 % (4.0-6.0)
[2021-06-23 13:54] LABS: BUN Creatinine Ratio 19.3 (6-22); Blood Urea Nitrogen 17 mg/dL (9-20); Calcium 9.3 mg/dL (8.4-10.2); Carbon Dioxide 27 mmol/L (22-32); Chloride 107 mmol/L (98-107); Estimated Glomerular Filt Rate > 60.0 mL/min (>60); Glucose 90 mg/dL (80-110); HEMOLYSIS < 15 (0-50); Potassium 4.5 mmol/L (3.4-5.1); Sodium 141 mmol/L (137-145)
== END ==
PROVIDERS: PCP Internal Medicine; Referring Provider Orthopaedic Surgery; Visit Provider Orthopaedic Surgery
DX: Z01.812 Encounter for preprocedural laboratory examination (principal); Z01.818 Encounter for other preprocedural examination; R73.9 Hyperglycemia, unspecified
CPT/HCPCS: 36415; 80048; 83036; 85025; 93005; 93010

== ENCOUNTER → 2021-07-20 10:13 | Outpatient (CLI) | payer MEDICARE, SELFPAY ==
[2020-04-28 10:43] VITALS: BMI 27.4
[2021-07-20 14:17] LABS: COVID19 -Nasal RAPID Negative (Negative)
== END ==
PROVIDERS: PCP Internal Medicine; Visit Provider Nurse Practitioner Family
DX: Z01.812 Encounter for preprocedural laboratory examination (principal); Z20.822 Contact with and (suspected) exposure to COVID-19
CPT/HCPCS: 87635; C9803

== ENCOUNTER → 2021-07-27 13:18 | Outpatient (CLI) | payer MEDICARE, SELFPAY ==
[2020-04-28 10:43] VITALS: BMI 27.4
[2021-07-27 14:59] LABS: COVID19 -Nasal RAPID Negative (Negative)
== END ==
PROVIDERS: PCP Internal Medicine; Referring Provider Orthopaedic Surgery; Visit Provider Orthopaedic Surgery
DX: Z20.822 Contact with and (suspected) exposure to COVID-19 (principal)
CPT/HCPCS: 87635; C9803

== ENCOUNTER → 2021-08-17 11:48 | Outpatient (CLI) | payer MEDICARE, SELFPAY ==
[2020-04-28 10:43] VITALS: BMI 27.4
[2021-08-17 13:49] LABS: COVID19 -Nasal RAPID Negative (Negative)
== END ==
PROVIDERS: PCP Internal Medicine; Visit Provider Family Medicine Sleep Medicine
DX: Z20.822 Contact with and (suspected) exposure to COVID-19 (principal)
CPT/HCPCS: 87635; C9803

== ENCOUNTER 2021-08-19 06:06 | Day surgery (SDC) | payer MEDICARE, SELFPAY ==
[2020-04-28 10:43] VITALS: BMI 27.4
[2021-07-14 12:40] VITALS: BMI 27.2
--- NOTE | 2021-07-21 19:21 | SUR.PREOP ---
Notified patient that surgery has been cancelled tommorrow. Aware to call surgeon's office tommorrow to reschedule.
[2021-08-19] VITALS (15 sets, daily range): BP systolic 93–146; BP diastolic 52–96; PULSE 64–77; RESP 10–21; TEMP 36–36.7; O2SAT 20–98; BMI 26.5
[2021-08-19] MEDS: LACTATED RINGERS 1,000 ML 42 ML IV ×2 (06:47→10:07)
[2021-08-19] MEDS: ACETAMINOPHEN 325 MG TABLET 975 MG PO (07:01)
[2021-08-19] MEDS: CELECOXIB 200 MG CAPSULE PO (07:03)
[2021-08-19] MEDS: PREGABALIN 75 MG CAPSULE PO (07:18)
--- NOTE | 2021-08-19 07:27 | PM.PREOP ---
Pre-operative Note COVID-19 COVID-19 status: Negative Result date/Date tested (Pos, Neg/Pending): 08/17/21 Criteria for continued procedure: Expected advancement of disease process, Increased loss of function, Continuing or worsening of significant or severe pain and Non-surgical alternatives not available or appropriate per current SOC Interval Note History & Physical reviewed/Exam performed by Physician: Yes Changes to H&P: No
--- NOTE | 2021-08-19 07:39 | P.HP_ITS ---
History of Present Illness History of Present Illness Date Patient Seen: 08/19/21 Time Patient Seen: 07:39 Chief complaint: LT TSA *OPB* Narrative: The patient is a 71 year old man with progressively worsening, severe left shoulder pain. HePreviously has undergone a right total shoulder without complications. He has been scheduled for a left total shoulder. This has been delayed on 2 occasions due to staffing restrictions due to COVID. His pain is worsening. He is now brought to the hospital for left total shoulder replacement. This is an interim history and physical there have been no changes in history other than the above since the previous document a month ago. Patient History Medical History Melanoma Osteoarthritis Surgical History History of arthroplasty of right shoulder (10/27/17) History of arthroscopy of right shoulder (1999) History of mandibular surgery (1989) History of total right hip replacement (04/28/20) History of vasectomy (1972) Hx of appendectomy (1970) Family & Social History Social History: household members spouse Prior Living Arrangements House Safety & Behavioral: Feels Safe in Current Yes Environment Been Physically Hurt or No Threatened By a Person Suicidal Ideation Description None Suicide Plan Description No Plan Tobacco & Substance use: Smoking Status Never smoker alcohol intake current alcohol intake frequency a few times a week Substance Use Type marijuana Meds Home Medications and Allergies Home Medications Medication Instructions Recorded Confirmed Type atorvastatin 10 mg tablet 10 mg PO DAILY 07/14/21 08/19/21 History ibuprofen 200 mg tablet 400 mg PO DAILY PRN 07/14/21 08/19/21 History fluorouracil 5 % topical cream See Rx Instructions .ROUTE .COMPLEX 08/19/21 08/19/21 History Allergies Allergy/AdvReac Type Severity Reaction Status Date / Time amoxicillin [AMOXICILLIN] Allergy Mild RASH Verified 08/19/21 07:14 Review of Systems Review of Systems Narrative: The patient denies any change in his current state of health other than ongoing left shoulder pain which is becoming increasingly severe. Exam Vital Signs (past 8 hours): - 08/19/21 07:05 Temperature 98.0 F Pulse Rate 64 Respiratory Rate 18 Blood Pressure 146/96 H Pulse Oximetry 98 Oxygen Delivery Method Room Air Narrative Exam Narrative: Normocephalic atraumatic. Chest clear to auscultation. Heart is regular rate and rhythm. Abdomen soft nontender with normal Ricardo bowel sounds. Left upper extremity examination is unchanged from that documented in his previous preoperative history and physical. Assessment & Plan Assessment & Plan narrative: The patient has end-stage left shoulder osteoarthritis. This is becoming inc reasingly severe in terms of pain and dramatically limiting his lifestyle. After discussion the risks benefits and alternatives he has agreed to proceed with left total shoulder replacement. COVID-19 COVID-19 status: Negative Result date/Date tested (Pos, Neg/Pending): 08/17/21 Time Spent With Patient Critical Care time: I spent a total of [] minutes of critical care time on this patient's care today; this time is exclusive of procedural time.
[2021-08-19] MEDS: MIDAZOLAM 2 MG/2 ML VIAL 1 MG IV ×2 (07:45→07:55)
[2021-08-19] MEDS: fentaNYL 100 MCG/2 ML INJ 50 MCG IV ×2 (07:46→07:55)
--- NOTE | 2021-08-19 07:58 | SUR.OPER ---
Beach chair with Schlein shoulder positioner. Lower body on padded OR bed. Head in foam padded head cradle, secured with straps. Non-operative arm secured <90 degrees abduction. Pillow under knees. Gel pad under heels. Safety belt at thigh. Cloth tape over blanket over lower legs.
--- NOTE | 2021-08-19 08:09 | SUR.PREOP ---
Block start time [0800] . Monitoring initiated and maintained throughout procedure. Oxygen and medications given per anesthesiologist instructions. Patient remained stable throughout procedure, no adverse reactions noted. Block end time [0807].
[2021-08-19] MEDS: CEFAZOLIN 2 GM/20 ML SYRINGE IV (08:27)
[2021-08-19] MEDS: TRANEXAMIC ACID 1,000 MG VIAL 1000 MG INJ ×2 (08:29→10:20)
[2021-08-19] MEDS: BUPIVACAINE 0.5% (PF) 30 ML, EPINEPHrine 0.15 MG INJ (08:52)
--- NOTE | 2021-08-19 09:03 | PM.PROC.1 ---
Procedures Nerve Block Time out performed: Yes Additional comments: Left Interscalene Block for post op pain relief following TSA. Procedure explained regarding risks and benefits. Consent signed. Monitors placed; O2 per NC at 2L/m. Chloroprep and sterile towels. Ultrasound visualization. IV sedation with fentanyl 100mcg and midazolam 2mg. Stimex needle
--- NOTE | 2021-08-19 09:07 | PM.PROC.1 ---
Procedures Date/Time Date of procedure: 08/19/21 Time of procedure: 08:00 Nerve Block Time out performed: Yes Local anesthetic used: bupivacaine 0.5% (0.5% Bupivacaine 13ml and 2% Lidocaine with epi 1:200 2ml ) Location of anesthetic used: Left Brachial Plexus Amount of anesthesia used (mL): 13 Nerve blocks: brachial plexus (Interscalene Block, left) Procedure successful: Yes Patient tolerated procedure: well and no complications Complications: none Additional comments: Routine STACIE monitors and O2 per NC at 2L/m applied. IV sedation with Fentanyl 50+50mcg and Midazolam 1+1mg administered. Ultrasound visualization. No Nerve Stimulator used. Sterile technique with chloroprep and sterile towels. Stimex 22g needle 50mm, switched to 100mm to optimize depth and good view on ultrasound. Test dose of 2ml negative. Total volume as indicated above. Patient tolerated well and block was starting to set up at the time of OR arrival.
[2021-08-19] MEDS: THROMBIN (RECOMBINANT) 5,000 UNIT VIAL 5000 UNIT TOP ×2 (09:08→09:51)
--- NOTE | 2021-08-19 10:36 | PM.OP.1 ---
Operative Date/Time/Diagnoses Date of procedure: 08/19/21 Time of procedure: 10:36 Pre-op diagnosis: Left shoulder osteoarthritis Post-op diagnosis: same Procedure & Clinicians Procedure: Left total shoulder replacement Same procedure as scheduled: Yes Indications: The patient has had progressively worsening left shoulder pain with radiographic changes consistent with arthritis. Non-operative management has failed and the patient has requested total shoulder replacement. The risks, benefits and alternatives to surgery were discussed with the patient prior to proceeding. Risks discussed included, but were not limited to, failure to relieve pain, stiffness, infection, nerve damage, deep venous thrombosis, pulmonary embolism, stroke, coma, heart attack, permanent paralysis and , as well as the potential need for eventual revision of the prosthetic. Surgeon: Jose Manuel Hodges Open Hearth Laborer: Shelton Womack Click Yes if Unassisted: No Anesthesia Type: General, Peripheral nerve block and Local Operative Notes Findings: Severe osteoarthritis of the left shoulder with a mild B2 glenoid and extremely large osteophytes on the humerus and glenoid with multiple loose bodies. Closure Type: primary Specimen(s): none sent Prosthetic devices, grafts, tissues, transplants, or devices: Implants used in this procedure were manufactured by the [employer] and included a size 2 P2 porous-coated canal sparing stem, a 50 mm x 18 mm neutral humeral head with a neutral stem. In addition there was a 50 mm all-polyethylene pegged glenoid. Also used was an [employer] speed bridge anchor system for closure. Applied: implant(s) Estimated Blood Loss (mL): 150 Blood products transfused: none Procedure in detail: The patient was seen in the pre-operative area, where the patient identified the left shoulder as the operative site and this was marked with my initials. The patient received pre-operative antibiotics, underwent an interscalene block, and was taken to the operating room and placed on the operative table in the supine position. After satisfactory anesthesia, a full ?time out? was performed. The patient was repositioned in the ?beach chair? position using a dedicated positioner. All pressure points were well padded, and the knees were slightly bent to prevent tension on the sciatic nerves. The left arm was prepared from the fingers to the base of the neck with ChloroPrep in the usual fashion and draped through sterile drapes. An approximately 12 cm incision was created, starting at the clavicle above the coracoid process and extended towards the deltoid insertion. The deltopectoral interval was used to access the shoulder. The cephalic vein was taken medially. A self retaining retractor was placed. The ?three sisters? were identified and cauterized. The axillary nerve was palpated and protected throughout the case. The biceps was released from its groove and tenodesed over the top of the pectoralis major tendon. The subscapularis was released from the lesser tuberosity with a subscapularis peel and tagged for later repair. Multiple loose bodies were excised and the very large inferior humeral osteophyte was removed with an osteotome and rongeurs. The shoulder was dislocated and a cutting guide was used for the proximal humeral osteotomy in 30 degrees of retroversion. The proximal humerus was sized with a trial humeral head and a guide pin drilled through the lateral cortex of the humerus. The proximal Reamer was used to create the depression for the collar. The broach for the size 2 stem was then placed. A proximal humeral protector was then placed on the broach. We then removed the self-retaining retractor and placed retractors to access the glenoid. The subscapularis was released with a ?360 degree release? with care being taken to protect the axillary nerve with the inferior portion of this procedure. The remnant of labrum and biceps stump were removed. The appropriate size reamer was chosen with the glenoid sizer, and the guide pin placed. The glenoid was appropriately reamed. The guide for the peripheral holes was used and the center hole enlarged. The trial glenoid was placed with good stability. We then cemented the final implant into place after irrigating the peg holes and drying them with thrombin-soaked Gelfoam. This procedure had to be done twice. On the 1st attempt the glenoid prosthetic did not seat well and it was noted that 1 of the pegs had bent rather than go into the PEG hole in the glenoid. While the cement was still curing this was removed and the cement was cleaned out of the various peg holes. The procedure was then repeated successfully for the final implant. We returned our attention to the humerus, a trial humeral head was applied and a trial reduction performed. Stability was checked with 50% posterior translation with spontaneous reduction, 45? external rotation at the side with the subscapularis held in the repaired position and 70? internal rotation. This was felt to be satisfactory and the appropriate implants were opened. The humeral tri flanged stem prosthetic was impacted into the humerus. The humeral head was applied when the stem was still slightly proud and impacted to both seat the head and fully seat the stem. The joint was relocated one final time. The joint was irrigated and the subscapularis repaired to the lesser tuberosity using a double row repair with the speed bridge system. The top of the subscapularis was closed to the leading edge of the supraspinatus with a figure of 8 #2 FiberWire to close the rotator interval. The deltopectoral interval was closed with interrupted 2-0 Vicryl. The subcutaneous layer was closed with 3-0 Vicryl, and the skin with a running 3-0 V-Lock suture and Dermabond. The inferior portion of the wound was injected subcutaneously with bupivacaine for postoperative pain control. An Aquacel Ag dressing was applied, the patient?s arm was placed in a sling, and the patient was taken to recovery having tolerated the procedure well. Complications: none Post-operative Condition: stable Disposition: PACU Plan for aftercare: The patient will be maintained on a standard total shoulder protocol with passive range of motion in front of the body below shoulder level. He will be evaluated later in the day and potentially discharge this afternoon. If he does not leave this afternoon he likely will be discharged tomorrow morning.
--- NOTE | 2021-08-19 11:16 | SUR.PHASEI ---
1039 hrs: Pt arrives PACU with oral airway. Initial spo2 less than 90 % room air, nasal cannula 4 L applied, no improvement. Oropharynx suctioned, chin lift applied, BVM briefly applied, patient placed on 12 L NRB, spo2 improves.
--- NOTE | 2021-08-19 13:25 | PC.NURSE ---
Pt arrived on floor at 1215 to room 203 from PACU after left shoulder surgery. Pt denies pain and nausea and shortness of breath. SCD are applied and running, vitals are WDL. pt has cap refill less than 2 seconds in operated shoulder with numbness in left hand. Bed alarm on for safety. Pt agrees to call for assistance as needed and to not get up w/out assistance.
[2021-08-19] MEDS: IBUPROFEN 400 MG TABLET PO (13:37)
--- NOTE | 2021-08-19 14:17 | PC.NURSE ---
PT discharged at 1430 to private vehicle by RN and . D/C info gone over; meds, Oxycodone precautions and use, shoulder precautions, and signs of stroke and infection. Pt verbalizes understanding of D/C education and is calm and ready to go home.
--- NOTE | 2021-08-19 14:19 | PT-IP ANOTE ---
Dr. Hodges stated that he will d/c pt and does not need PT. Talked with pt regarding any questions and concerns and stated that he is ok with everything and had previous shoulder surgery and still aware of his precautions. No PT eval per doctor's order.
== END 2021-08-19 14:25 | disposition home or self-care (01) ==
LOC: OR 06:08 → AC 06:11
PROVIDERS: PCP Internal Medicine; Referring Provider Orthopaedic Surgery; Visit Provider Orthopaedic Surgery
PROC: (CPT 23472; principal; 2021-08-19 07:45)
DX: M19.012 Primary osteoarthritis, left shoulder (principal)
CPT/HCPCS: 23472; 64450; C1776; J0171; J0330; J0690; J1100; J2250; J2405; J2704; J3010

== ENCOUNTER 2022-07-27 00:30 | Emergency (ER) | payer MEDICARE, SELFPAY ==
[2021-08-19 12:22] VITALS: BMI 26.5
[2022-07-27 00:34] VITALS: PULSE 60; RESP 16; TEMP 36.6; O2SAT 99
--- NOTE | 2022-07-27 00:41 | ED.CHESTPAIN ---
HPI - Chest Pain General Chief Complaint: Chest Pain Stated Complaint: CHEST PAIN Time Seen by Provider: 07/27/22 00:41 Source: patient Mode of arrival: Ambulatory Limitations: no limitations History of Present Illness HPI narrative: 72-year-old gentleman with a history of hyperlipidemia presents to the emergency department complaining of chest pain starting an hour prior to arrival presents pale pantoja diaphoretic nauseated. Initial EKG shows significant ST elevation anteriorly. Called to [facility] to initiate STEMI protocol, call to [facility] to initiate emergent transfer. Patient is help back to room 6 and becomes unconscious and has slight seizure-like activity as he is being wheeled into the room with loss of pulses. CPR was started immediately. Crash cart is pulled in pads were placed he is found to be in ventricular fibrillation and 200 joules administered. CPR is restarted. With ongoing CPR he is alert enough to be pulling at hands clearly remains in VFib. Second shock is administered with return to sinus rhythm with significant ST elevation. Related Data Home Medications Medication Instructions Recorded Confirmed atorvastatin 10 mg tablet 10 mg PO DAILY 07/14/21 08/19/21 fluorouracil 5 % topical cream See Rx Instructions .Route .COMPLEX 08/19/21 08/19/21 Previous Rx's Medication Instructions Recorded oxycodone 5 mg tablet 5 mg PO Q4H PRN Pain, Moderate 08/19/21 (4-6) #40 tabs Allergies Allergy/AdvReac Type Severity Reaction Status Date / Time amoxicillin [AMOXICILLIN] Allergy Mild RASH Verified 08/19/21 07:14 Review of Systems Review of Systems ROS Unobtainable: Unobtainable due to medical condition Patient History Medical History Melanoma Osteoarthritis Surgical History History of arthroplasty of right shoulder (10/27/17) History of arthroscopy of right shoulder (1999) History of mandibular surgery (1989) History of total right hip replacement (04/28/20) History of vasectomy (1972) Hx of appendectomy (1970) Social History household members: spouse Smoking Status: Never smoker alcohol intake: current Smoking Status: Never smoker alcohol intake frequency: a few times a week Substance Use Type: marijuana Exam Initial Vital Signs Initial Vital Signs: Vital Signs Temperature 97.8 F 07/27/22 00:34 Pulse Rate 60 07/27/22 00:34 Respiratory Rate 16 07/27/22 00:34 Pulse Oximetry 99 07/27/22 00:34 Oxygen Delivery Method 07/27/22 00:34 General: Ashen, diaphoretic, nauseated and in acute distress CPR started almost immediately Neurologic: He is somewhat slowed but able to answer questions initially. He is moving all extremities Thorough physical exam was not possible given the immediate critical Care and emergent transfer to EMS for definitive treatment Course Orders Ordered: ED Orders 07/27/22 EKG-12 Lead Routine 07/27/22 00:58 Complete Blood Count AUTO DIFF Stat Comprehensive Metabolic Panel Stat Troponin I Stat 07/27/22 02:13 COVID19 -Nasal RAPID/Pre-Proc Stat Heparin Sodium/Dextrose (Heparin Drip) 25,000 unit in 500 mls @ 20 mls/hr IV CONT JENNA; Protocol Last Admin: 07/27/22 02:28 Dose: Not Given Documented By: CORY Propofol (Propofol) 1,000 mg in 100 mls @ 2.654 mls/hr IV TITRATE JENNA; Protocol Last Admin: 07/27/22 02:28 Dose: Not Given Documented By: CORY Discontinued Medications Aspirin (Aspirin 300 Mg Supp) 300 mg AK NOW ONE Stop: 07/27/22 01:03 Last Admin: 07/27/22 01:10 Dose: 300 mg Documented By: CORY Heparin Sodium (Porcine) (Heparin 5,000 Unit/Ml Vial) 4,000 unit IV NOW ONE Stop: 07/27/22 00:59 Last Admin: 07/27/22 01:05 Dose: 4,000 unit Documented By: CORY Midazolam HCl (Midazolam 2 Mg/2 Ml Vial) 4 mg IV NOW ONE Stop: 07/27/22 01:14 Last Admin: 07/27/22 01:16 Dose: 4 mg Documented By: CORY Vital Signs Vital signs: Vital Signs - 8 hr 07/27/22 00:34 07/27/22 01:07 Temperature 97.8 F Pulse Rate 60 77 Respiratory Rate 16 Pulse Oximetry 99 Oxygen Delivery Method Room Air MDM - Chest Pain Lab Data Result diagrams: 07/27/22 00:58 07/27/22 00:58 Labs: Lab Results 01/07/27/22 07/27/22 Range/Units 00:58 00:58 02:13 WBC 4.3 L (4.5-11.0) X10^3/uL RBC 5.04 (4.5-5.9) X10^6/uL Hgb 15.8 (13.5-17.5) g/dL Hct 47.9 (41-53) % MCV 95.0 (80-100) fL MCH 31.4 (26-34) PG MCHC 33.0 (30-36) % RDW 12.8 (11.6-14.8) % Plt Count 286 (150-400) X10^3/uL Neut % (Auto) 28.6 L (50-75) % Lymph % (Auto) 60.3 H (25-40) % Bailey % (Auto) 7.5 (3-14) % Eos % (Auto) 2.6 (2-4) % Baso % (Auto) 1.0 (0-2) % Neut # (Auto) 1200 L (8929-8930) /uL Lymph # (Auto) 2600 (3973-2274) /uL Bailey # (Auto) 300 (0-900) /uL Eos # (Auto) 100 (0-450) /uL Baso # (Auto) 0 (0-100) /uL Sodium 139 (137-145) mmol/L Potassium 3.6 (3.4-5.1) mmol/L Chloride 101 (98-107) mmol/L Carbon Dioxide 20 L (22-32) mmol/L BUN 18 (9-20) mg/dL Creatinine 1.04 (0.66-1.25) mg/dL Estimated GFR > 60 (>60) mL/min BUN/Creatinine Ratio 17.3 (6-22) Glucose 164 H (80-110) mg/dL Calcium 9.0 (8.4-10.2) mg/dL Total Bilirubin 0.9 (0.2-1.3) mg/dL AST 81 H (17-59) IU/L ALT 72 H (<50) IU/L Alkaline Phosphatase 57 (38-126) U/L Troponin I 0.020 (0.01-0.034) ng/mL Total Protein 7.7 (6.3-8.2) g/dL SARS-CoV-2 (PCR) Negative (Negative) ECG Data Interpretation: 0038 Undetermined rhythm with significant ST elevation anteriorly consistent with STEMI MDM Narrative Medical decision making narrative: CC: Chest pain for an hour Complicating co-morbidities: Hyperlipidemia Corroborating data: Data collected from: patient, Differential considered: STEMI, dissection, massive PE, Exam documented above, pertinent findings include: VFib arrest Lab Test results independently reviewed as above. Pertinent findings: CBC is unremarkable Chemistries are reassuring with slightly elevated AST ALT Initial troponin is normal at 0.020 drawn within an hour of onset of pain Independently reviewed EKG as above Consultations: Discussion with [facility] Emergency room physician Dr. Stafford to activate STEMI protocol. Care reviewed with transporting medics Treatments: ACLS protocols with ongoing CPR, 2 shocks to treat ventricular fibrillation with return of circulation. He is given 300 mg of amiodarone. Epinephrine was not given. He is given rectal aspirin, loaded with 4000 units of heparin and heparin drip started. Post intubation sedation with Versed and propofol pushes while patient is transferred to [facility] Re-evaluations: Post return of circulation breathing is shallow and ineffective. Decision is made to intubate. Once patient was stable and being transferred to care of medics, his , who was immediately available to witnessed seen tire sequence of events, was updated on all findings and questions were answered. Discussion: 72-year-old gentleman presents within an hour of onset of acute substernal chest pain shortly after arrival in the emergency department and acute STEMI diagnosed he suffered cardiac arrest with return of circulation. Was urgently transferred to [facility] post intubation Diagnosis: STEMI, VFib arrest Disposition: see below, Follow-up after transfer, patient went directly to the yard laborer had complete occlusion of the LAD that was stented and is comfortably resting in the CCU at this time Critical Care Time Critical Care Time Critical Care Time: Yes Total Critical Care Time: 47 Attestation: Critical care time is separate from other billable procedures. There is a high probability of a significant, sudden or life-threatening deterioration that requires my full and direct attention, intervention and personal management. This critical care time includes consultation with family and other consulting doctors, review of records, and interpretation of data from labs, EKGs and imaging as well as managements of cardiac arrest, near respiratory arrest and STEMI. Discharge Plan Departure Patient Disposition: [facility] Clinical Impression: ST elevation (STEMI) myocardial infarction, Cardiac arrest with ventricular fibrillation Prescriptions: No Action atorvastatin 10 mg Tablet 10 mg PO DAILY fluorouracil 5 % cream See Rx Instructions .ROUTE .COMPLEX Label Comments: APPLY TWICE DAILY TO SUN DAMAGED SKIN/PRECANCEROUS SPOTS FOR ONE MONTH Rx Instructions: use daily oxycodone 5 mg Tablet 5 mg PO Q4H PRN (Reason: Pain, Moderate (4-6)) Qty: 40 0RF
[2022-07-27] MEDS: HEPARIN 5,000 UNIT/ML VIAL 4000 UNIT IV (01:05)
[2022-07-27 01:07] VITALS: PULSE 77; O2SAT 100
[2022-07-27] MEDS: ASPIRIN 300 MG SUPP PR (01:10)
[2022-07-27] MEDS: MIDAZOLAM 2 MG/2 ML VIAL 4 MG IV (01:16)
[2022-07-27 01:21] LABS: Add Manual Diff / Slide Review NO; Basophils Absolute Auto 0 /uL (0-100); Eosinophils Absolute Auto 100 /uL (0-450); Eosinophils Percent Auto 2.6 % (2-4); Hematocrit 47.9 % (41-53); Hemoglobin 15.8 g/dL (13.5-17.5); Lymphocytes Absolute Auto 2600 /uL (1100-4500); Lymphocytes Percent Auto 60.3 % (25-40); Mean Corpuscular Hemoglobin 31.4 PG (26-34); Monocytes Absolute Auto 300 /uL (0-900); Monocytes Percent Auto 7.5 % (3-14); Neutrophils Absolute Auto 1200 /uL (1500-7000); Neutrophils Percent Auto 28.6 % (50-75); Platelet Count 286 X10^3/uL (150-400); Red Blood Cell Count 5.04 X10^6/uL (4.5-5.9); Red Cell Distribution Width 12.8 % (11.6-14.8); White Blood Cell Count 4.3 X10^3/uL (4.5-11.0)
[2022-07-27 01:24] LABS: Alanine Aminotransferase 72 IU/L (<50); Alkaline Phosphatase 57 U/L (38-126); BUN Creatinine Ratio 17.3 (6-22); Bilirubin Total 0.9 mg/dL (0.2-1.3); Blood Urea Nitrogen 18 mg/dL (9-20); Carbon Dioxide 20 mmol/L (22-32); Chloride 101 mmol/L (98-107); Estimated Glomerular Filt Rate > 60 mL/min (>60); Glucose 164 mg/dL (80-110); Sodium 139 mmol/L (137-145); Total Protein 7.7 g/dL (6.3-8.2)
[2022-07-27 01:25] LABS: Potassium 3.6 mmol/L (3.4-5.1)
[2022-07-27 01:26] LABS: Aspartate Aminotransferase 81 IU/L (17-59)
[2022-07-27 02:32] LABS: COVID19 -Nasal RAPID Negative (Negative)
--- NOTE | 2022-07-27 03:10 | P.EN_ITS ---
Event Note Date Patient Seen: 07/27/22 Time Patient Seen: 00:42 Event Note (Rapid Response, Code, or fall): Gilles mckeon called 0042 in ED, cardiac arrest secondary to STEMI, with subsequent respiratory distress, participated in cardiac resuscitation team, until patient was transported by paramedics/and Florence RN to [facility] to cardiac catheterization lab at HPI per Dr. Concepcion ED:72-year-old gentleman with a history of hyperlipidemia presents to the emergency department complaining of chest pain starting an hour prior to arrival presents pale pantoja diaphoretic nauseated.? Initial EKG shows significant ST elevation anteriorly.? Called to [facility] to initiate STEMI protocol, call to 911 to initiate emergent transfer.? Patient is help back to room 6 and becomes unconscious and has slight seizure-like activity as he is being wheeled into the room with loss of pulses.? CPR was started immediately.? Crash cart is pulled in pads were placed he is found to be in ventricular fibrillation and 200 joules administered.? CPR is restarted.? With ongoing CPR he is alert enough to be pulling at hands clearly remains in VFib.? Second shock is administered with return to sinus rhythm with significant ST elevation. -patient after returning to sinus rhythm, continued to demonstrate distress, increased work of breathing, decreasing O2 saturation continued chest pain, diaphoretic, confused and shortness of breath-pending respiratory arrest, placed on non-rebreather and Dr. Concepcion subsequently intubated the patient, patient was not placed him on ventilator but was instead bagged, because only to paramedics were available to transport the patient and would have had to have a respiratory go with them on transfer, we only had 1 respiratory in house on staff. The paramedics did require that an José Miguel RN accompany them for transport to continue bagging for ventilation, and medication management to [facility]. Because patient presented to triage with STEMI symptoms, IV access was obtained after the initiation of cardiac resuscitation. Once IV access was obtained CBC and troponin obtained, patient given of 300mg of adenosine, aspirin 325mg rectally, 4000 bolus heparin, followed by heparin drip, (per intubation) Etomidate push and propofol drip. Patient was successfully being ventilated per bag, stable for transport and was then left the unit via EMS 2 paramedics and Tejal RN ([place] [facility]) to [facility] for a higher level of care- immediate transfer to cardiac cardiac cath technician. Transfer facilitate by Dr. Jamey SLATER
[2022-07-30 16:07] LABS: Albumin 4.6 g/dL (3.5-5.0); Albumin Globulin Ratio 1.5 (1.0-2.8); Globulin 3.1 g/dL (1.7-4.1)
[2022-07-30 16:11] LABS: HEMOLYSIS 98 (0-50)
== END 2022-07-27 01:20 | disposition short-term general hospital (02) ==
PROVIDERS: Emergency Provider Emergency Medicine
DX: I21.3 ST elevation (STEMI) myocardial infarction of unspecified site (principal); I46.9 Cardiac arrest, cause unspecified; E78.5 Hyperlipidemia, unspecified; Z20.822 Contact with and (suspected) exposure to COVID-19
CPT/HCPCS: 80053; 84484; 85025; 87635; 93005; 94799; 96374; 96375; 99284; 99291; C9803; J1644; J2250

== ENCOUNTER 2023-02-03 20:53 | Emergency (ER) | payer MEDICARE, SELFPAY ==
[2021-08-19 12:22] VITALS: BMI 26.5
[2023-02-03] VITALS (7 sets, daily range): BP systolic 101–144; BP diastolic 62–88; PULSE 46–69; RESP 16–19; TEMP 36.9; O2SAT 95–98; BMI 25.4
--- NOTE | 2023-02-03 21:12 | DI.RAD.S_ITS ---
PROCEDURE: XR CHEST 1V INDICATIONS: chest pain TECHNIQUE: One view of the chest was acquired. COMPARISON: [facility], CR, XR CHEST 1 VIEW, 07/27/2022, 4:45. FINDINGS: Surgical changes and devices: None. Lungs and pleura: Lungs are clear. No pleural effusions or pneumothorax. Mediastinum: Mediastinal contours appear normal. Heart size is normal. Bones and chest wall: No suspicious bony lesions. Overlying soft tissues appear unremarkable. IMPRESSION: 1. No acute cardiopulmonary disease. Dictated by: Ruperto Card M.D. on 02/03/2023 at 22:47 Approved by: Ruperto Card M.D. on 02/03/2023 at 22:48
[2023-02-03 21:32] LABS: Add Manual Diff / Slide Review NO; Basophils Absolute Auto 100 /uL (0-100); Basophils Percent Auto 1.1 % (0-2); Eosinophils Absolute Auto 200 /uL (0-450); Eosinophils Percent Auto 2.8 % (2-4); Hematocrit 44.2 % (41-53); Hemoglobin 14.8 g/dL (13.5-17.5); Lymphocytes Absolute Auto 2800 /uL (1100-4500); Lymphocytes Percent Auto 34.5 % (25-40); Mean Corpuscular HGB Conc 33.5 % (30-36); Mean Corpuscular Hemoglobin 32.6 PG (26-34); Mean Corpuscular Volume 97.3 fL (80-100); Monocytes Absolute Auto 1000 /uL (0-900); Monocytes Percent Auto 11.6 % (3-14); Neutrophils Absolute Auto 4100 /uL (1500-7000); Platelet Count 262 X10^3/uL (150-400); Red Blood Cell Count 4.55 X10^6/uL (4.5-5.9); Red Cell Distribution Width 13.5 % (11.6-14.8); White Blood Cell Count 8.2 X10^3/uL (4.5-11.0)
[2023-02-03 21:36] LABS: Alanine Aminotransferase 38 IU/L (<50); Albumin 4.2 g/dL (3.5-5.0); Albumin Globulin Ratio 1.7 (1.0-2.8); Alkaline Phosphatase 52 U/L (38-126); Aspartate Aminotransferase 36 IU/L (17-59); BUN Creatinine Ratio 14.8 (6-22); Bilirubin Total 0.8 mg/dL (0.2-1.3); Blood Urea Nitrogen 12 mg/dL (9-20); Calcium 9.2 mg/dL (8.4-10.2); Carbon Dioxide 27 mmol/L (22-32); Chloride 107 mmol/L (98-107); Creatine Kinase 126 U/L (55-170); Estimated Glomerular Filt Rate > 60 mL/min (>60); Globulin 2.5 g/dL (1.7-4.1); Glucose 115 mg/dL (80-110); HEMOLYSIS < 15 (0-50); Lipase 64 U/L (23-300); Potassium 4.2 mmol/L (3.4-5.1); Sodium 140 mmol/L (137-145); Total Protein 6.7 g/dL (6.3-8.2)
--- NOTE | 2023-02-03 22:24 | ED_ITS ---
HPI - Chest Pain General Chief Complaint: Chest Pain Stated Complaint: chest pain, lt arm tingling, had heart attack 6 mo Time Seen by Provider: 02/03/23 21:11 Source: patient Mode of arrival: Ambulatory Limitations: no limitations History of Present Illness HPI narrative: Patient is 73-year-old male history of recent STEMI in July 2022 with stent in LAD and cardiac arrest hypertension hyperlipidemia presenting today with chest discomfort. He reports that he was in his recliner watching TV when he got dull ache in the left chest. He says it came and went in waves lasting for less than 5 minutes at a time. He had some tingling in his fingers. He reports this is similar to when he had his previous heart attack. No shortness of breath no nausea vomiting or diaphoresis. He is followed by [facility]. He is taking lisinopril Plavix and aspirin. He denies any fluttering in his chest he is noted to be in atrial flutter on the monitor with a heart rate in the 60s. He reports that yesterday he was able to go to the gym he had no problem. He went a gym today as well. He takes his blood pressure in his heart rate every morning his heart rate is generally in the mid 60s. Related Data Home Medications Medication Instructions Recorded Confirmed atorvastatin 10 mg tablet 40 mg PO DAILY 07/14/21 02/03/23 fluorouracil 5 % topical cream See Rx Instructions .Route .COMPLEX 08/19/21 08/19/21 aspirin 81 mg tablet,delayed 81 mg PO DAILY 02/03/23 02/03/23 release clopidogrel 75 mg tablet 75 mg PO DAILY 02/03/23 02/03/23 lisinopril 2.5 mg tablet 2.5 mg PO DAILY 02/03/23 02/03/23 Previous Rx's Medication Instructions Recorded oxycodone 5 mg tablet 5 mg PO Q4H PRN Pain, Moderate 08/19/21 (4-6) #40 tabs apixaban 5 mg tablet (Eliquis) 5 mg PO BID #60 tabs 02/04/23 Allergies Allergy/AdvReac Type Severity Reaction Status Date / Time amoxicillin [AMOXICILLIN] Allergy Mild RASH Verified 02/03/23 21:04 Review of Systems Review of Systems ROS Unobtainable: All systems reviewed & are unremarkable except as noted in HPI and below Patient History Medical History Melanoma Osteoarthritis Surgical History History of arthroplasty of right shoulder (10/27/17) History of arthroscopy of right shoulder (1999) History of mandibular surgery (1989) History of total right hip replacement (04/28/20) History of vasectomy (1972) Hx of appendectomy (1970) Social History household members: spouse Smoking Status: Never smoker alcohol intake: current Smoking Status: Never smoker alcohol intake frequency: a few times a week Substance Use Type: marijuana Exam Initial Vital Signs Initial Vital Signs: Vital Signs Temperature 98.5 F 02/03/23 21:01 Pulse Rate 69 02/03/23 21:01 Respiratory Rate 17 02/03/23 21:01 Blood Pressure 138/88 02/03/23 21:01 Pulse Oximetry 98 02/03/23 21:01 Oxygen Delivery Method Room Air 02/03/23 21:01 GENERAL: Alert pleasant 73-year-old male and in no acute distress. HEENT: Head atraumatic,EOMI, pupils reactive, face symmetric, moist mucous membranes CARDIOVASCULAR: Irregularly irregular RESPIRATORY: Breath sounds equal bilaterally, no wheezes rales or rhonchi. ABDOMEN: Soft, nontender. Normoactive bowel sounds all 4 quadrants. No guarding or rebound. EXTREMITIES: Normal range of motion, no clubbing or edema. Neurovascularly intact NEUROLOGICAL: Alert and oriented x4.Normal gait and speech. Cranial nerves II through XII grossly intact. SKIN: Warm, dry, no laceration, no petechiae, no rashes or lesions. Course Orders Ordered: ED Orders 02/03/23 21:03 Complete Blood Count AUTO DIFF Stat 02/03/23 21:11 Comprehensive Metabolic Panel Stat D Dimer Stat Lipase Stat Troponin & CK Cardiac Panel Stat 02/03/23 21:12 XR chest 1V Stat EKG-12 Lead Stat 02/03/23 23:08 EKG-12 Lead Stat 02/03/23 23:11 Troponin & CK Cardiac Panel Stat Discontinued Medications Apixaban (Apixaban 5 Mg Tablet) 5 mg PO NOW ONE Stop: 02/04/23 00:30 Last Admin: 02/04/23 00:33 Dose: 5 mg Documented By: Vital Signs Vital signs: Vital Signs - 8 hr 02/03/23 21:01 02/03/23 21:19 02/03/23 21:57 Temperature 98.5 F Pulse Rate 69 67 66 Respiratory Rate 17 16 16 Blood Pressure 138/88 131/84 106/67 Pulse Oximetry 98 95 97 Oxygen Delivery Method Room Air Room Air Room Air 02/03/23 22:03 02/03/23 22:42 02/03/23 23:13 Temperature Pulse Rate 67 65 63 Respiratory Rate 16 16 19 Blood Pressure 111/70 101/62 104/72 Pulse Oximetry 98 98 98 Oxygen Delivery Method Room Air Room Air Room Air 02/03/23 23:48 02/04/23 00:35 Temperature Pulse Rate 46 L 65 Respiratory Rate 16 16 Blood Pressure 144/64 H 122/72 Pulse Oximetry 98 97 Oxygen Delivery Method Room Air Room Air MDM - Chest Pain Lab Data 02/03/23 21:03 02/03/23 21:11 Labs: Lab Results 02/03/23 02/03/23 02/03/23 Range/Units 21:03 21:11 21:11 WBC 8.2 (4.5-11.0) X10^3/uL RBC 4.55 (4.5-5.9) X10^6/uL Hgb 14.8 (13.5-17.5) g/dL Hct 44.2 (41-53) % MCV 97.3 (80-100) fL MCH 32.6 (26-34) PG MCHC 33.5 (30-36) % RDW 13.5 (11.6-14.8) % Plt Count 262 (150-400) X10^3/uL Neut % (Auto) 50.0 (50-75) % Lymph % (Auto) 34.5 (25-40) % [place] % (Auto) 11.6 (3-14) % Eos % (Auto) 2.8 (2-4) % Baso % (Auto) 1.1 (0-2) % Neut # (Auto) 4100 (6314-5295) /uL Lymph # (Auto) 2800 (5476-4983) /uL [place] # (Auto) 1000 H (0-900) /uL Eos # (Auto) 200 (0-450) /uL Baso # (Auto) 100 (0-100) /uL D-Dimer 306 (<500) ng/ml Sodium 140 (137-145) mmol/L Potassium 4.2 (3.4-5.1) mmol/L Chloride 107 (98-107) mmol/L Carbon Dioxide 27 (22-32) mmol/L BUN 12 (9-20) mg/dL Creatinine 0.81 (0.66-1.25) mg/dL Estimated GFR > 60 (>60) mL/min BUN/Creatinine Ratio 14.8 (6-22) Glucose 115 H (80-110) mg/dL Calcium 9.2 (8.4-10.2) mg/dL Total Bilirubin 0.8 (0.2-1.3) mg/dL AST 36 (17-59) IU/L ALT 38 (<50) IU/L Alkaline Phosphatase 52 (38-126) U/L Total Creatine Kinase 126 (55-170) U/L Troponin I 0.020 (0.01-0.034) ng/mL Total Protein 6.7 (6.3-8.2) g/dL Albumin 4.2 (3.5-5.0) g/dL Globulin 2.5 (1.7-4.1) g/dL Albumin/Globulin Ratio 1.7 (1.0-2.8) Lipase 64 (23-300) U/L // Range/Units 23:11 WBC (4.5-11.0) X10^3/uL RBC (4.5-5.9) X10^6/uL Hgb (13.5-17.5) g/dL Hct (41-53) % MCV (80-100) fL MCH (26-34) PG MCHC (30-36) % RDW (11.6-14.8) % Plt Count (150-400) X10^3/uL Neut % (Auto) (50-75) % Lymph % (Auto) (25-40) % [place] % (Auto) (3-14) % Eos % (Auto) (2-4) % Baso % (Auto) (0-2) % Neut # (Auto) (6203-7070) /uL Lymph # (Auto) (7934-1464) /uL [place] # (Auto) (0-900) /uL Eos # (Auto) (0-450) /uL Baso # (Auto) (0-100) /uL D-Dimer (<500) ng/ml Sodium (137-145) mmol/L Potassium (3.4-5.1) mmol/L Chloride (98-107) mmol/L Carbon Dioxide (22-32) mmol/L BUN (9-20) mg/dL Creatinine (0.66-1.25) mg/dL Estimated GFR (>60) mL/min BUN/Creatinine Ratio (6-22) Glucose (80-110) mg/dL Calcium (8.4-10.2) mg/dL Total Bilirubin (0.2-1.3) mg/dL AST (17-59) IU/L ALT (<50) IU/L Alkaline Phosphatase (38-126) U/L Total Creatine Kinase 114 (55-170) U/L Troponin I 0.014 (0.01-0.034) ng/mL Total Protein (6.3-8.2) g/dL Albumin (3.5-5.0) g/dL Globulin (1.7-4.1) g/dL Albumin/Globulin Ratio (1.0-2.8) Lipase (23-300) U/L Imaging Data Chest x-ray: Radiologist's Impression: PROCEDURE:? XR CHEST 1V ? INDICATIONS:? chest pain ? TECHNIQUE:? One view of the chest was acquired.? ? COMPARISON:? [facility], CR, XR CHEST 1 VIEW, 07/27/2022, 4:45. ? FINDINGS:? ? Surgical changes and devices:? None.? ? Lungs and pleura:? Lungs are clear.? No pleural effusions or pneumothorax.? ? Mediastinum:? Mediastinal contours appear normal.? Heart size is normal.? ? Bones and chest wall:? No suspicious bony lesions.? Overlying soft tissues appear unremarkable.? ? IMPRESSION:? ? 1.? No acute cardiopulmonary disease. ? ? ? Dictated by: Ruperto Card M.D. on 02/03/2023 at 22:47 ? ? ECG Data Interpretation: EKG 1. Atrial flutter rate [address] changes previous EKGs showed obvious ST elevation in anterior leads EKG 2. Atrial flutter rate 52 no changes MDM Narrative Medical decision making narrative: Patient is in new onset atrial flutter on the monitor. He presents today with some chest discomfort. But since being in the ED he reports that his symptoms have completely resolved. He continues to be in atrial flutter heart rate actually dropped into the 40s briefly and then into the mid 60s. It is difficult to tell when this started. It may have started tonight but he is no longer having any sort of discomfort. I think he is a poor candidate for car dioversion. He is 2- troponins negative D-dimer unlikely to be a pulmonary embolism. He is previously been on a beta-garfield which he did not tolerate. He certainly does not need anything for rate control at this time. Dr. Morales, cardiology updated on symptoms test results agrees with no cardi oversion. Recommend continuing Plavix stopping the aspirin and starting the Eliquis. Precautions with Eliquis have been discussed with both patient and . Discharge Plan Departure Patient Disposition: Home Clinical Impression: Atrial flutter Instructions: Atrial Flutter Activity Restrictions/Additional Instructions: *You have been diagnosed with atrial flutter *What to do: At this time you have new onset atrial flutter. There is risk of stroke. You will need to follow-up with Cardiology as soon as possible *Continue to take medications as directed Eliquis 5 mg twice a day--> [facility] Stop taking aspirin Continue taking clopidogrel *Follow up with your primary care provider in 2-3 days or call [phone] Call cardiology tomorrow *Return to ER if you should have fall hitting her head, rectal bleeding, other bleeding that is not stopping, chest pain palpitations passing out shortness of breath or if your tells you too or any new, worsening or concerning symptoms Prescriptions: New Eliquis 5 mg tablet 5 mg PO BID Qty: 60 0RF No Action atorvastatin 10 mg Tablet 40 mg PO DAILY fluorouracil 5 % cream See Rx Instructions .ROUTE .COMPLEX Patient Comments: APPLY TWICE DAILY TO SUN DAMAGED SKIN/PRECANCEROUS SPOTS FOR ONE MONTH Rx Instructions: use daily oxycodone 5 mg Tablet 5 mg PO Q4H PRN (Reason: Pain, Moderate (4-6)) Qty: 40 0RF clopidogrel 75 mg tablet 75 mg PO DAILY aspirin 81 mg Tablet,Delayed Release (Dr/Ec) 81 mg PO DAILY lisinopril 2.5 mg tablet 2.5 mg PO DAILY Referrals: Hudson West MD [Physician] - Jesika Hernandez MD [Primary Care Provider] - Stand Alone Forms: Patient Portal/API
[2023-02-03 23:32] LABS: Creatine Kinase 114 U/L (55-170)
[2023-02-03 23:33] LABS: D Dimer 306 ng/ml (<500)
[2023-02-03 23:45] LABS: Troponin I 0.014 ng/mL (0.01-0.034)
[2023-02-04] MEDS: APIXABAN 5 MG TABLET PO (00:33)
[2023-02-04 00:35] VITALS: BP 122/72; PULSE 65; RESP 16; O2SAT 97
== END 2023-02-04 00:47 | disposition home or self-care (01) ==
PROVIDERS: Emergency Provider Emergency Medicine; PCP Internal Medicine
DX: I25.2 Old myocardial infarction (principal); I48.92 Unspecified atrial flutter; Z79.01 Long term (current) use of anticoagulants
CPT/HCPCS: 36415; 71045; 80053; 82550; 83690; 84484; 85025; 85379; 93005; 99284

== ENCOUNTER → 2024-01-26 10:27 | Outpatient (CLI) | payer MEDICARE, SELFPAY ==
[2021-08-19 12:22] VITALS: BMI 26.5
--- NOTE | 2024-01-26 10:31 | EKG_ITS ---
[address] [address] Test Date: 2024-01-26 Pat Name: Luis Ledezma Department: [facility] Room: Gender: Male Plaster Pattern Caster: : 1950 Requested By: Order Number: [id number] Reading MD: Alexandr Hurley MD Measurements Intervals [place] Rate: 59 P: 78 CA: 252 QRS: 57 QRSD: 120 T: 57 QT: 476 QTc: 471 Interpretive Statements Sinus bradycardia with 1st degree AV block Biatrial enlargement Septal infarct , age undetermined NO SIGNIFICANT CHANGE FROM PRIOR TRACING Electronically Signed On 01-26-2024 11:12:45 PDT by Alexandr Hurley MD
[2024-01-26 12:18] LABS: Add Manual Diff / Slide Review NO; Basophils Absolute Auto 100 /uL (0-100); Eosinophils Absolute Auto 100 /uL (0-450); Hematocrit 44.7 % (41-53); Lymphocytes Absolute Auto 1700 /uL (1100-4500); Lymphocytes Percent Auto 28.7 % (25-40); Mean Corpuscular HGB Conc 33.5 % (30-36); Mean Corpuscular Hemoglobin 32.2 PG (26-34); Mean Corpuscular Volume 96.2 fL (80-100); Monocytes Absolute Auto 700 /uL (0-900); Monocytes Percent Auto 11.2 % (3-14); Neutrophils Absolute Auto 3300 /uL (1500-7000); Neutrophils Percent Auto 57.1 % (50-75); Platelet Count 215 X10^3/uL (150-400); Red Blood Cell Count 4.65 X10^6/uL (4.5-5.9); Red Cell Distribution Width 13.3 % (11.6-14.8); White Blood Cell Count 5.8 X10^3/uL (4.5-11.0)
[2024-01-26 12:59] LABS: Albumin 4.5 g/dL (3.5-5.0); BUN Creatinine Ratio 18.2 (6-22); Blood Urea Nitrogen 16 mg/dL (9-20); Calcium 9.2 mg/dL (8.4-10.2); Carbon Dioxide 26 mmol/L (22-32); Chloride 107 mmol/L (98-107); Estimated Glomerular Filt Rate > 60 mL/min (>60); Glucose 93 mg/dL (80-110); HEMOLYSIS < 15 (0-50); Potassium 5.3 mmol/L (3.4-5.1); Sodium 140 mmol/L (137-145)
[2024-01-26 13:08] LABS: Prealbumin 31.6 mg/dL (17.6-36.0)
[2024-01-26 14:05] LABS: Hemoglobin A1C% w Est Avg Glu 5.6 % (4.0-6.0)
[2024-01-26 15:47] LABS: Vitamin D 25 Hydroxy (D3) 34.6 ng/mL (30.0-100.0)
== END ==
LOC: RESP 10:29
PROVIDERS: PCP Internal Medicine; Referring Provider Orthopaedic Surgery Adult Reconstructive Orthopaedic Surgery; Visit Provider Orthopaedic Surgery Adult Reconstructive Orthopaedic Surgery
DX: Z01.818 Encounter for other preprocedural examination (principal); R73.9 Hyperglycemia, unspecified; E55.9 Vitamin D deficiency, unspecified; R77.0 Abnormality of albumin; Z01.812 Encounter for preprocedural laboratory examination
CPT/HCPCS: 36415; 80048; 82040; 82306; 83036; 84134; 85025; 93005

== ENCOUNTER 2025-05-10 14:49 | Emergency (ER) | payer MEDICARE, SELFPAY ==
[2021-08-19 12:22] VITALS: BMI 26.5
[2025-05-10 14:53] VITALS: BP 146/97; PULSE 59; RESP 18; TEMP 36.6; O2SAT 99; BMI 26.0
--- NOTE | 2025-05-10 15:53 | ED_ITS ---
<Statement entered by Alexandr Cho, DO - 05/10/25 19:24> Co-sign statement: I was available for consultation during this patient's emergency department visit. This chart is being signed by myself for administrative purposes only. I do not have direct contact with this patient during this visit. They were seen independently by the APC. HPI - Recheck/Abnormal Lab/Rx General Chief Complaint: Recheck/Abnormal Lab/Rx Stated Complaint: L upper arm incision post op reopened, on thinner Time Seen by Provider: 05/10/25 15:15 Source: patient Mode of arrival: Ambulatory History of Present Illness HPI narrative: This is a 75-year-old patient who takes Plavix and aspirin as well as Eliquis who has been off of his Eliquis for 2 days presenting with concern for bleeding from a plastic surgery site/dermatology surgery site. Patient states that he had a melanoma in Situ removed earlier today this morning at [facility] by a plastic surgeon. He states that there was no bandage on it and it seemed to be doing fine after the surgery but then at 2:00 p.m. today he had some ice over the area and he thinks possibly some liquid water from the ice pack may have compromised the surgical glue and he started to have bleeding from the site. Says it bled quite a bit. He used a stiptick powder to try to stop the bleeding and his also applied a dressing he came in to the ER for further evaluation. He has not called the plastic surgeon/Dermatology office regarding this. He states he has a history of bleeding after surgery/intervention. He denies dizziness, lightheadedness or other symptoms. Related Data Home Medications ?Medication ?Instructions ?Recorded ?Confirmed atorvastatin 10 mg tablet 40 mg PO DAILY 07/14/2101/09 fluorouracil 5 % topical cream See Rx Instructions .Ro hallie .COMPLEX 08/19/21 08/19/21 aspirin 81 mg tablet,delayed 81 mg PO DAILY 02/03/23 0 02/03/23 release clopidogrel 75 mg tablet 75 mg PO DAILY 02/03/2301/09 lisinopril 2.5 mg tablet 2.5 mg PO DAILY 02/03/23 Previous Rx's ?Medication ?Instructions ?Recorded oxycodone 5 mg tablet 5 mg PO Q4H PRN Pain, [place] te 08/19/21 (4-6) #40 tabs apixaban 5 mg tablet (Eliquis) 5 mg PO BID #60 tabs Allergies Allergy/AdvReac Type Severity Reaction Status Date / Time amoxicillin (AMOXICILLIN) Allergy Mild RASH Verified 05/10/25 14:54 Review of Systems Review of Systems Narrative: See HPI Patient History Medical History Melanoma Osteoarthritis Surgical History History of total right hip replacement (04/28/20) History of vasectomy (1972) Hx of appendectomy (1970) History of mandibular surgery (1989) History of arthroscopy of right shoulder (1999) History of arthroplasty of right shoulder (10/27/17) Social History household members: spouse alcohol intake: current Smoking Status: Never smoker alcohol intake frequency: a few times a week Exam Narrative Exam Narrative: GENERAL: [75] year old patient appears stated age. Well-developed patient, in mild distress. HEAD: Atraumatic. Normocephalic. EYES: Pupils equal round and reactive. Extraocular motions intact. No scleral icterus. No injection or drainage. ENT: Nose without bleeding, purulent drainage. Airway patent. NECK: Trachea midline. Non tender CARDIOVASCULAR: Regular rate and rhythm without murmurs, gallops, or rubs. RESPIRATORY: Clear to auscultation. Breath sounds equal bilaterally. No wheezes, rales, or rhonchi. EXTREMITIES: There is a new surgical site/scar consistent with the procedure he had this morning running from proximal to distal over the patient's left upper arm on the lateral/posterior aspect. Wound is approximately 10 cm in length and is closed with internal sutures. There is bruising around the surgical site, no active bleeding, some swelling present and slight gapping at 1 location of the suture site however sutures do appear intact. There is dried clotted blood and styptic powder material present covering the wound and varying degrees of Dermabond remaining over the surgical site. No other edema or joint tenderness. ROM of the affected extremity is intact NEURO: AOx3. SKIN:SEE EXTREMITIES No rash or erythema of visible areas Initial Vital Signs Initial Vital Signs: Vital Signs Temperature 97.9 F 05/10/25 14:53 Pulse Rate 59 L 05/10/25 14:53 Respiratory Rate 18 05/10/25 14:53 Blood Pressure 146/97 H 05/10/25 14:53 Pulse Oximetry 99 05/10/25 14:53 Oxygen Delivery Method Room Air 05/10/25 14:53 Procedures Laceration Repair Laceration 1: Time of procedure: 16:45 Site: upper extremity Side (If applicable): left Size (cm): 10 Description: linear (previously closed w/internal sutures (intact) and dermabond --dermabond compromised/largely missing) Pre-repair: cleansed with chlorhexadine (cleansed with chlorhexidine and water) Skin layer closed with: dermabond (3 new layers of dermabond placed over existing repair) Course Vital Signs Vital signs: Vital Signs - 8 hr 05/10/25 14:53 05/10/25 17:13 Temperature 97.9 F Pulse Rate 59 L 60 Respiratory Rate 18 16 Blood Pressure 146/97 H 128/60 Pulse Oximetry 99 97 Oxygen Delivery Method Room Air Room Air MDM - Recheck/Abnormal Lab/Rx Differential Diagnosis Differential diagnosis: Likely encounter for wound recheck and other (Surgical site bleeding) Medical Records Attestation: I reviewed the patient's medical records. Treatment and disposition Shared decision making:: Shared decision-making was used in determining plan for cleaning, additional Dermabond layers and pressure wrap dressing MDM Narrative Medical decision making narrative: This is a 75-year-old male on Plavix, Eliquis and aspirin who has been off of his Eliquis for 2 days as he had a melanoma surgery by a plastic surgeon this morning in his left upper arm. Presenting to the emergency department with concern for bleeding from his left upper arm that occurred starting at 2:00 p.m. today and was difficult to control. Bleeding had stopped completely on exam in the emergency department despite the absence of pressure dressing. The area was cleansed with chlorhexidine carefully and examined. No return of or persistent bleeding. Swelling present and hematoma at the edges of the surgical site with sutures (internal) all appearing intact. Additional/New layers of Dermabond were placed over the wound as dermabond layer had largely been compromised prior to patient's arrival likely due to water melting from ice being held over the wound. Dermabond was allowed to dry completely and a gentle pressure dressing was placed patient was also provided a sling and advised to minimize movement of his left arm. Attempt elevation when possible and monitor for recurrent bleeding or numbness tingling or discoloration of the arm with a pressure dressing on. He was also advised to contact his provider that performed the surgery this morning and advise them he was seen in the emergency department and attempt to have very close follow up with them early next week. Return precautions provided, follow-up plan discussed, all questions answered. 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 [ ] New medication prescriptions sent to your pharmacy: [ ] [ ] New medication written as a paper prescription [X ] No new medications given *Please follow up with your primary care provider in 2-3 days, call for an appointment. Let them know you were seen in the Emergency Department and that we ask that you be seen in follow up. We will electronically transmit a record of today's note if your PCP is in our system. You came in today with concern for bleeding from the site where you had plastic surgery to remove melanoma on your left upper arm this morning. By the time he arrived to the emergency department they active bleeding had stopped. We cleaned the area carefully with surgical soap and water and were able to identify you do have hematoma/bruising immediately adjacent to the wound and swelling which likely put pressure on your sutures. All of your sutures do appear to be intact. We applied additional Dermabond over the wound after cleaning the area and after drying this applied a pressure dressing. I recommend that you use the sling as much as possible for the next few days so that you are reminded to minimize movement of your left arm. Moving your arm a lot or pressure on your arm could potentially cause bleeding again. When you sleep tonight you may want to ensure you are lying on your back or right side or use a pillow to prop up your left upper back to keep your left upper arm from pressing against the bed or any surfaces. I strongly encourage you to reach out to your provider's office where you had this surgery done and let them know that this occurred and make sure that you have a close follow up appointment with them for recheck/evaluation. As we discussed if you develop numbness or tingling, pale or blue appearing extremity on your left arm where we put a gentle pressure dressing today do remove the Ozzie wrap and if needed you can remove the cotton wrap dressing beneath it. You can change the dressings in 24-48 hours, it is unlikely you will need to continue to keep a pressure dressing on after this. But do talk to your provider's office about it. I hope that this has solved the problem and you feel better. Good luck with your healing process. *If you do not have a primary care provider please contact the [facility] Resource line at [phone]. They will ask some questions about your medical history and help get you set up with a doctor in the community. *Return to Emergency Department if you should have any new, worsening or concerning symptoms, such as [fever greater than 101 F, shaking chills, worseni ng pain, persistent vomiting or other bothersome symptoms] Prescriptions: No Action atorvastatin 10 mg Tablet 40 mg PO DAILY fluorouracil 5 % cream See Rx Instructions .ROUTE .COMPLEX Patient Comments: APPLY TWICE DAILY TO SUN DAMAGED SKIN/PRECANCEROUS SPOTS FOR ONE MONTH Rx Instructions: use daily oxycodone 5 mg Tablet 5 mg PO Q4H PRN (Reason: Pain, Moderate (4-6)) Qty: 40 0RF clopidogrel 75 mg tablet 75 mg PO DAILY aspirin 81 mg Tablet,Delayed Release (Dr/Ec) 81 mg PO DAILY lisinopril 2.5 mg tablet 2.5 mg PO DAILY Eliquis 5 mg tablet 5 mg PO BID Qty: 60 0RF Referrals: Jesika Hernandez MD [Primary Care Provider, Internal Medicine] Stand Alone Forms: Patient Portal/API
[2025-05-10 17:13] VITALS: BP 128/60; PULSE 60; RESP 16; O2SAT 97
--- NOTE | 2025-05-10 17:14 | PC.NURSE ---
cleaned and wrapped left upper arm with provider, educated pt on pressure dressing, and when to loosen, pt/pt agreed, sent home with additional bandage
== END 2025-05-10 17:34 | disposition home or self-care (01) ==
PROVIDERS: Emergency Provider Student in an Organized Health Care Education/Training Program; PCP Internal Medicine
DX: L76.21 Postprocedural hemorrhage of skin and subcutaneous tissue following a dermatologic procedure (principal); D03.62 Melanoma in situ of left upper limb, including shoulder
CPT/HCPCS: 12004; 99281; 99282